=== PATIENT | female | born 1945 | race Caucasian/White ===

== ENCOUNTER 2018-01-09 06:14 | Day surgery (SDC) | payer MEDICARE, OTHER ==
[~2018-01-09] VITALS: Ht 157.5 cm; Wt 66.7 kg
[~2018-01-09 06:14] MED LIST: ESSENTIAL DAIL1 EACH PO; KEFLEX500 MG PO; VALACYCLOVIR500 MG PO; ZOFRAN ODT4 MG PO
[2018-01-09] MEDS ORDERED: MACROBID 100 M100 MG PO (06:30)
[2018-01-09] MEDS ORDERED: LISINOPRIL10 MG PO (06:31)
--- NOTE | 2018-01-09 08:16 | NUR ---
01/09/18 0816 Padmini Carrera 0810 ASSUMED CARE FROM JOSEFA Tellez RN. PATIENT SLEEPING, DIFFICULT TO ARROUSE, BUT AFTER REPEATED VERBAL AND TACTILE STIMULI, PATIENT OPENS EYES. ANSWERS QUESTIONS WITH SLURRED SPEECH. DENIES PAIN OR NAUSEA. ASK QUESTIONS APPROPRIATELY, THEN BACK TO SLEEP. RESP EVEN AND UNLABORED. NC AT 3 LITERS.
--- NOTE | 2018-01-09 09:58 | OR ---
[facility] [address], [place] [address] Signed DATE OF OPERATION: 01/09/2018 SURGEON: Concepcion Haq MD PREOPERATIVE DIAGNOSIS: Guaiac-positive stool. POSTOPERATIVE DIAGNOSES: 1. Moderate external hemorrhoids. 2. Minimal to moderate internal hemorrhoids. 3. Moderate sigmoid diverticulosis. PROCEDURE: Colonoscopy without biopsy. ESTIMATED BLOOD LOSS: None. INDICATIONS: Santa is a 72-year-old female who was recently found to have guaiac-positive stool. Today, she has not had a colonoscopy. She says there is no family history of colon cancer or polyps. She really does not have any lower GI complaints. However, she has been through a hysterectomy for uterine cancer and she is quite worried. I gave her a pamphlet in the office on colonoscopy and we looked at that together along with the risks including, but not limited to gas, bloating, crampy abdominal pain, bleeding, perforation requiring surgery, and missed diagnosis. We also discussed the need for IV conscious sedation. She expressed understanding and wished to proceed. PROCEDURE NOTE: Santa was taken into our endoscopy suite and placed in the left lateral decubitus position. She was given 9 mg of Versed and 150 mcg of fentanyl to cover the case. A digital rectal exam was performed and she does have circumferential external hemorrhoids. They are a bit scarred and firm. Her anal canal is just large enough to get my index finger through, although she has a very short anal canal. After this, the adult colonoscope was introduced and advanced under direct visualization of the camera. It took extra sedation and abdominal compression in order to advance the scope. Santa is slight of build and her sigmoid colon was a bit tortuous and narrow with moderate sigmoid diverticulosis. Once we got through that area, it took just a few more minutes then to get into the cecum itself. Her prep was quite good. We could easily see the ileocecal valve and the appendiceal orifice. The scope was then slowly withdrawn. We Electronically Signed By: CONCEPCION HAQ MD 01/09/18 0958 PATIENT NAME: SANAT PACHECO OPERATIVE REPORT DATE OF : 47 REPORT #: [id number] PHYSICIAN: CONCEPCION HAQ MD PCP: NIKKI SOUZA PA-C REPORT IS CONFIDENTIAL AND NOT TO BE RELEASED WITHOUT AUTHORIZATION [address] [address] Signed had taken several pictures throughout for photodocumentation. No other pathology found in the colon or rectum. Upon retroflexion of the scope, she has minimal to moderate internal hemorrhoid columns. One was a little irritated and I suspect that is the one that may have caused the guaiac-positive stool. After this, the gas was suctioned out and the colonoscope removed. Santa tolerated the procedure quite well. RECOMMENDATIONS: Santa can follow up in 10 years for repeat colonoscopy. Concepcion Haq MD ALB/LEDYL /[id number] cc: Nikki Souza PA-C Copies: NIKKI SOUZA PA-C ~ Electronically Signed By: CONCEPCION HAQ MD 01/09/18 0958 PATIENT NAME: SANTA PACHECO KIRON OPERATIVE REPORT DATE OF : 47 REPORT #: [id number] PHYSICIAN: CONCEPCION HAQ MD PCP: NIKKI SOUZA PA-C REPORT IS CONFIDENTIAL AND NOT TO BE RELEASED WITHOUT AUTHORIZATION
--- NOTE | 2018-01-09 14:48 | NUR ---
PT IN FOR ROUTINE SCOPE. FIRST SCOPE, SEEMED TO TOLERATE PREP-BUT STATED SHE CAN NEVER DRINK GATORADE AGAIN. PLEASANT VISIT, PT DECLINED PRAYER. EXTENDED A BLESSING. WILL FOLLOW NEEDED
== END 2018-01-09 09:00 | disposition home or self-care (01) ==
LOC: OPS 06:14 → DS 06:14 → OPS 06:45 → DS 06:45 → OPS 09:00
PROVIDERS: Colon & Rectal Surgery
PROC: 0DJD8ZZ Inspection of Lower Intestinal Tract, Via Natural or Artificial Opening Endoscopic (ICD-10-PCS; principal; 2018-01-09 06:45)
DX: R19.5 Other fecal abnormalities (principal); K64.8 Other hemorrhoids; K64.4 Residual hemorrhoidal skin tags; K57.30 Diverticulosis of large intestine without perforation or abscess without bleeding; I10 Essential (primary) hypertension; E78.5 Hyperlipidemia, unspecified; Z79.2 Long term (current) use of antibiotics; Z79.899 Other long term (current) drug therapy; Z88.1 Allergy status to other antibiotic agents
CPT/HCPCS: 99153; G0500; J2250; J3010; J7120

== ENCOUNTER 2019-04-30 13:54 | Emergency (ER) | payer MEDICARE, OTHER ==
[~2019-04-30] VITALS: Ht 160 cm; Wt 59.0 kg
[~2019-04-30 13:54] MED LIST changes: +LISINOPRIL10 MG PO; +MACROBID 100 M100 MG PO
== END 2019-04-30 15:46 | disposition home or self-care (01) ==
LOC: ED 13:54
PROC: 2W3CX1Z Immobilization of Right Lower Arm using Splint (ICD-10-PCS; principal; 2019-04-30)
DX: S52.501A Unspecified fracture of the lower end of right radius, initial encounter for closed fracture (principal); S80.02XA Contusion of left knee, initial encounter; Z85.42 Personal history of malignant neoplasm of other parts of uterus; Z88.2 Allergy status to sulfonamides; Z79.899 Other long term (current) drug therapy; X50.1XXA Overexertion from prolonged static or awkward postures, initial encounter
CPT/HCPCS: 29125; 73110; 73610; 99283-25

== ENCOUNTER 2019-09-23 06:33 | Emergency (ER) | payer MEDICARE, OTHER ==
[~2019-09-23] VITALS: Ht 160 cm; Wt 54.4 kg
--- NOTE | 2019-09-23 19:28 | EKG ---
[facility] [address] [facility] [place], [place] [address] Signed Normal sinus rhythm Left axis deviation Left bundle branch block Abnormal ECG No previous ECGs available Confirmed by NUVIA GALLO MD ([id number]) on 09/23/2019 7:28:11 PM Electronically Signed By: NUVIA GALLO MD 09/23/19 1928 PATIENT NAME: DANIELLE PACHECO AMBIKA Electrocardiogram DATE OF : 47 PHYSICIAN: NUVIA GALLO MD REPORT #: [id number] REPORT IS CONFIDENTIAL AND NOT TO BE RELEASED WITHOUT AUTHORIZATION
== END 2019-09-23 09:58 | disposition home or self-care (01) ==
LOC: ED 06:33
DX: R55 Syncope and collapse (principal); D61.818 Other pancytopenia; I10 Essential (primary) hypertension; Z88.2 Allergy status to sulfonamides; Z79.899 Other long term (current) drug therapy
CPT/HCPCS: 80053; 81001; 83605; 83735; 84484; 85025; 93005; 93010; 96360; 99284-25; J7030

== ENCOUNTER 2019-09-23 09:57 | Day surgery (SDC) | payer MEDICARE, OTHER ==
--- NOTE | 2019-09-23 10:08 | NUR ---
ARRIVED PER WC FROM E D TO ROOM 6 FOR BONE MARROW BX. HAS IV IN .
--- NOTE | 2019-09-23 10:20 | NUR ---
WAS ABLE TO DRAW BLOOD FROM IV SITE FOR BONE MARROW KIT.
--- NOTE | 2019-09-23 12:25 | NUR ---
DR ZELAYA HAS BEEN IN TO SEE PT. PT HAS BEEN UPDATED AND HAS BEEN UP TO BR X2 WHILE WAITING. DENIES ANY NEEDS.
--- NOTE | 2019-09-23 13:22 | NUR ---
09/23/19 1322 Mercedes Sethi 1319-PATIENT ARRIVED TO PACU ON 2L NC LAYING PRONE. REACTIVE TO VERBAL STIMULI DENIES PAIN OR NAUSEA. BANDAID CDI.
--- NOTE | 2019-09-25 14:04 | PATH ---
[facility] [address] [facility] [place], [place] [address] Signed SPECIMEN(S): A BONE MARROW - CORE SPECIMEN(S): B BONE MARROW - ASPIRATION SPECIMEN(S): C COMPREHENSIVE FLOW CYTOMETRY ONLY, BM EDTA ASP CLINICAL HISTORY: 74-year-old woman without PMHX, now with new onset symptomatic pancytopenia. D61.818 (other pancytopenia). DIAGNOSIS SUMMARY: A. Peripheral blood - Leukopenia with absolute neutropenia and lymphocytopenia. - Microcytic anemia. - Thrombocytopenia with small platelet clumps identified. B. Bone marrow, aspirate smears, clot section cell block, and core biopsy: - Hypocellular marrow (10-20%) with rare BA21-nekyynyu atypical cells identified. - Non-necrotizing granulomas detected. - Decreased M:E ratio. - Stainable iron present, mildly increased. - Please see Diagnostic Comment. DIAGNOSTIC COMMENT: The bone marrow core biopsy demonstrates several non-necrotizing granulomas with associated rare ZZ53-bfyuqrrv atypical cells that also demonstrate weak PAX5 expression. This finding is concerning for bone marrow involvement by classic Hodgkin lymphoma. Additional work up may be futile, as the focus of interest decreased in size in the deeper sections. If the patient has enlarged lymph nodes or other evidence of lymphoma, a formal tissue excision may be recommended for confirmation and further subclassification. Cytogenetic study is in progress and the result will be reported in an addendum. The case findings were discussed with Dr. Santillan at 12.30 p.m. on 09/25/2019. As part of [facility] Quality Improvement Program, this case was reviewed by another member of our pathology staff. GP:TTP:smn:C2NR PERIPHERAL BLOOD: HEMOGRAM ([facility]; 09/23/2019): WBC 2.1 K/uL, RBC 4.3 M/uL, HGB 11.5 g/dL, HCT 33.8%, MCV 78.7 fL, MCH 26.7 pg, MCHC 33.9 g/dL, RDW 16.5%, PLT PATIENT NAME: DANIELLE PACHECO PATHOLOGY DATE OF : 47 REPORT #: [id number] PHYSICIAN: ELENA MAYORGA PCP: RIGOBERTO UJAREZ PA-C REPORT IS CONFIDENTIAL AND NOT TO BE RELEASED WITHOUT AUTHORIZATION [facility] [address] [place], [place] [address] Signed 63 K/uL, MPV 8.9 fL. DIFFERENTIAL (100 cells): Neutrophils 68%, bands 14%, lymphocytes 10%, monocytes 8%. The blood smear is consistent with the CBC. Hemoglobin is mildly decreased with slightly low MCV; red blood cells are predominantly round, normochromic, slightly microcytic. Red blood cells demonstrate moderate anisocytosis with occasional polychromatophilic ovalocytes, echinocytes, and spherocytes. Schistocytes are not significantly increased. WBC count is markedly decreased with predominance of mature neutrophils and bands demonstrating intracytoplasmic vacuoles and normal cytoplasmic granularity. No blasts or otherwise immature cells detected. Lymphocytes are small with condensed chromatin pattern and scant to moderate amount of cytoplasm. Unremarkable monocytes are seen. Platelets are decreased in number, but normal in appearance. Some small platelet clumps are noted. BONE MARROW: BONE MARROW DIFFERENTIAL (400 cells): Blasts 1%, promyelocytes 2%, myelocytes 16%, metamyelocytes 16%, bands 8%, neutrophils 8%. Normoblasts 31%, lymphocytes 9%, plasma cells 1% monocytes 4%, eosinophils 3%, basophils 1%. ASPIRATE SMEARS: The aspirate smears are adequately cellular and demonstrate trilineage hematopoietic elements at different stages of maturation. Myelopoiesis is left shifted, but demonstrates full spectrum of maturation. Blasts are not significantly increased. M:E ratio is reversed. The erythroid precursors demonstrate megaloblastoid changes. Variably-sized megakaryocytes are noted. No significant eosinophilia or basophilia identified. BONE MARROW BIOPSY: The biopsy is suboptimal for evaluation due to a small sample size. Histologic sections demonstrate hypocellular bone marrow for the patient's age (overall estimated cellularity is approximately 10-20%). Several granulomas composed of multinucleated giant cells admixed with small lymphocytes, eosinophils, and rare larger cells with irregular nuclear outlines are noted. Erythroid colonies, mature granulocytes, interstitial eosinophils, and evenly distributed megakaryocytes are noted. CLOT SECTION: Clot section contains small bone marrow fragments with similar morphologic appearance. Granulomas are not detected. SPECIAL STAINS (performed on aspirate smear and clot section): PATIENT NAME: DANIELLE PACHECO PATHOLOGY DATE OF : 47 REPORT #: [id number] PHYSICIAN: ELENA PATHOLOGY PCP: RIGOBERTO JUAREZ PA-C REPORT IS CONFIDENTIAL AND NOT TO BE RELEASED WITHOUT AUTHORIZATION [facility] [address] [facility] [place], [place] [address] Signed - Iron stain: Increased stainable iron; no ring sideroblasts detected. SPECIAL STAINS (performed on bone marrow core biopsy): - Reticulin stain: Highlights reticulin fibrosis associated with granulomas. - GMS: Negative for fungal organisms. - AFB: Negative for acid fast bacilli. IMMUNOHISTOCHEMICAL STAINS (performed on bone marrow core biopsy): - CD30: Positive in some large cells within granulomas. - PAX5: Weak positivity in large cells within granulomas. - CD3: Positive in small T-cells. - CD20: Positive in rare cells. - CD34: Positive in endothelial cells and rare immature cells. - CD117: Positive in scattered mast cells. - CD71: Positive in erythroid precursors. - Factor VIII: Positive in megakaryocytes; highlights some small forms. - Myeloperoxidase: Positive in myeloid precursors. GP:anselmo FLOW CYTOMETRY: Bone marrow, flow cytometry: - No increase in blasts. - No monoclonal B-cell or aberrant T-cell populations detected. - Please see Comment. COMMENT: The flow cytometry study demonstrates no immunophenotypic evidence of a hematolymphoid malignancy. Correlation with clinical and morphologic findings is required for complete interpretation of the flow cytometry results and to evaluate for disorders not fully characterized by flow cytometric analysis including myelodysplastic syndromes, myeloproliferative neoplasms and others. GP:[facility] hospital FLOW CYTOMETRY ANALYSIS: FLOW DIFFERENTIAL (% Total CD45 vs. SSC gating): Myeloid 76%; Lymphoid 7%; Monocyte 1%; Dim CD45/Blast: 0.8%. Cell Count: 5.6 x 10*3/uL. POPULATION ANALYSIS: BLASTS: Analysis of the dim CD45 gate demonstrates 0.8% myeloblasts by CD34/CD117. LYMPHOID CELLS: The lymphocyte gate comprises 7% of total events and includes 84% T-cells with a CD4:CD8 ratio of 0.4:1 and normal kim T-cell antigen expression. 8% of lymphocytes are polyclonal PATIENT NAME: DANIELLE PACHECO AMBIKA PATHOLOGY DATE OF : 47 REPORT #: [id number] PHYSICIAN: ELENA PATHOLOGY PCP: RIGOBERTO JUAREZ PA-C REPORT IS CONFIDENTIAL AND NOT TO BE RELEASED WITHOUT AUTHORIZATION [facility] [address] [facility] [place], [place] [address] Signed B-cells with a kappa:lambda ratio of 2.6:1. The remainders are NK-cells. MYELOID CELLS: The myeloid population comprises 76% of the total events. No aberrant immunophenotypic expression is detected. MONOCYTES: The monocyte population comprises 1% of the total events. Monocytes are not increased. No aberrant immunophenotypic expression is detected. PLASMA CELLS: 0.1% plasma cells are detected in the screening gate neg-dimCD45/CD38. Plasma cells are CD45 dim and positive for CD19. ANTIBODIES USED: KAPPA, LAMBDA, CD20, CD10, CD19, CD23, CD38, FMC7, CD16, CD56, CD8, CD5, CD2, CD4, CD7, CD3, CD14, CD33, CD13, HLADR, CD34, CD117, CD15, CD45: TOTAL ANTIBODIES USED: 24. DKW FINAL DIAGNOSIS PERFORMED BY: Candelario Bell MD. MPH, Pathologist Sep 24 2019 4:16PM CYTOGENETICS: Pending, to be reported by addendum. GROSS DESCRIPTION: A. The specimen, received in formalin, labeled "Grafton, bone core," consists of a 0.7 cm, silva bone core. Submitted in (A1) following decalcification in Immunocal for 1.5 hours. B. The specimen, received in formalin, labeled "Alberto, clot," consists of a 1.8 x 1.5 x 0.2 cm aggregate of blood clot. Entirely submitted in (B1). tn:ARW:f ADDITIONAL NOTES: Immunohistochemical and/or in situ hybridization studies were performed on this case with the appropriate positive controls that react as expected. This test was developed and its performance characteristics determined by [facility]. It has not been cleared or approved by the U.S. Food and Drug Administration. The FDA has determined that such clearance or approval is not necessary. This test is used for clinical purposes. It should not be regarded as investigational or for research. [facility] is certified under the Clinical Laboratory Improvement Amendments of 1988 (CLIA) as qualified to perform high complexity clinical laboratory testing. In this case, certain antibodies were performed by both immunohistochemistry and flow cytometry analysis because flow cytometry analysis did not fully explain all the light microscopic findings. Immunohistochemistry aided in the analysis. Both methods are deemed medically PATIENT NAME: DANIELLE PACHECO PATHOLOGY DATE OF : 47 REPORT #: [id number] PHYSICIAN: ELENA MAYORGA PCP: RIGOBERTO JUAREZ PA-C REPORT IS CONFIDENTIAL AND NOT TO BE RELEASED WITHOUT AUTHORIZATION [address] [address] Signed necessary in this case. This test was developed and its performance characteristics determined by [facility]. It has not been cleared or approved by the US Food and Drug Administration. The FDA does not require this test to go through premarket FDA review. This test is used for clinical purposes. It should not be regarded as investigational or for research. This laboratory is certified under the Clinical Laboratory Improvement Amendments (CLIA) as qualified to perform high complexity clinical laboratory testing. PERFORMING LABORATORY: The professional interpretation was performed by [facility], [address] [place] [address] (Dietary Aide: Scott Khalil D.O.; CLIA#: [id number]). Professional interpretation was performed by [facility], [address] [place] [address] (Dietary Aide: Scott Khalil D.O.; CLIA#: [id number]). IMAGES: A: [id number]: [id number] Diagnostician: Candelario Bell MD. MPH Pathologist Electronically Signed 09/25/2019 Copies: ~ PATIENT NAME: DANIELLE PACHECO PATHOLOGY DATE OF : 47 REPORT #: [id number] PHYSICIAN: ELENA MAYORGA PCP: RIGOBERTO JUAREZ PA-C REPORT IS CONFIDENTIAL AND NOT TO BE RELEASED WITHOUT AUTHORIZATION
== END 2019-09-23 14:40 | disposition home or self-care (01) ==
LOC: OPS 09:57 → DS 13:00 → OPS 14:40
PROVIDERS: Specialist
PROC: 079T3ZX Drainage of Bone Marrow, Percutaneous Approach, Diagnostic (ICD-10-PCS; 2019-09-23)
PROC: 07DR3ZX Extraction of Iliac Bone Marrow, Percutaneous Approach, Diagnostic (ICD-10-PCS; principal; 2019-09-23 13:00)
DX: D70.9 Neutropenia, unspecified (principal); D69.6 Thrombocytopenia, unspecified; D50.9 Iron deficiency anemia, unspecified; R16.1 Splenomegaly, not elsewhere classified; B02.9 Zoster without complications; I10 Essential (primary) hypertension; Z79.899 Other long term (current) drug therapy; Z88.2 Allergy status to sulfonamides
CPT/HCPCS: 99152; 99153; J2250; J3010; J7121

== ENCOUNTER 2019-10-19 14:29 | Inpatient (IN) | payer MEDICARE, OTHER ==
[~2019-10-19] VITALS: Ht 160 cm; Wt 54.7 kg
--- NOTE | ~2019-10-19 | OR ---
[facility] [address], [place] [address] Draft DATE OF OPERATION: 10/23/2019 SURGEON: Concepcion Haq MD PREOPERATIVE DIAGNOSES: 1. Probable Hodgkin lymphoma. 2. Right inguinal lymphadenopathy. POSTOPERATIVE DIAGNOSES: 1. Probable Hodgkin lymphoma. 2. Right inguinal lymphadenopathy. PROCEDURES: 1. Placement of right internal jugular Port-A-Cath. 2. Physician-directed fluoroscopy. 3. Physician-directed ultrasound. 4. Right inguinal lymph node biopsy x3. ESTIMATED BLOOD LOSS: None. INDICATIONS: Santa is a 74-year-old female, who is in the process of being evaluated for Hodgkin lymphoma. She has been working with her medical oncologist. She was asked to see me for placement of her Port-A-Cath as well as a lymph node biopsy. In the office, I met with Santa and her . We could palpate at least two lymph nodes in the right groin just lateral to the femoral nerve, artery, and vein. We also know she has lymph nodes in both axilla, although, we could not palpate them in the office. I had reviewed with Santa and her the placement of a Port-A-Cath. They understand the nature of that catheter along with the risks of the procedure including, but not limited to bleeding, infection, scarring, change in contour of the skin, and pneumothorax requiring chest tube placement as well as catheter embolization requiring retrieval. We also reviewed the groin lymph node biopsy in detail. They understand the nature of that surgery along with its risks including, but not limited to bleeding, infection, scarring, change in contour of the skin, postoperative seroma, and/or hematoma as well as possible need for additional lymph node biopsies. They had expressed understanding and wished to proceed. PROCEDURE NOTE: I met with Santa and her in the preop area. We had planned to do her 2 days PATIENT NAME: SANTA PACHECO OPERATIVE REPORT DATE OF : 47 REPORT #: [id number] PHYSICIAN: CONCEPCION HAQ MD PCP: RENEE KAMARA MD REPORT IS CONFIDENTIAL AND NOT TO BE RELEASED WITHOUT AUTHORIZATION [facility] [address] [place], [place] [address] Draft ago, but she was admitted to the hospital with fevers. The entire workup was negative and this was attributed to her lymphoma. In fact, she was in the shower and had a fever yesterday, took some Tylenol, and subtle breakdown. After reviewing her question, she was taken in the operating room and placed in the supine position under monitored anesthesia care. She was given preoperative antibiotics along with subcutaneous heparin. SCDs were utilized. She was then prepped and draped in the usual sterile fashion in the neck, chest, and right groin. We used the ultrasound to localize the right internal jugular vein and carotid artery. Local anesthetic was injected underneath the skin and the needle was passed under direct visualization of the ultrasound into the internal jugular vein. We withdrew dark venous nonpulsatile blood. The wire was inserted and passed without any resistance whatsoever. The position of the wire was checked with our fluoroscopy unit. We then injected local anesthetic over the right chest wall, clavicle, and right neck. An oblique incision was made over the right chest wall and a subcutaneous pocket was developed bluntly with the help of a Pean clamp. We then passed our dilator over the wire down the right internal jugular vein. The position of the dilator was checked with the fluoroscopy unit. After this, the Port-A-Cath was inserted up to 14 cm at the level of the neck. The position of the catheter was checked with the help of fluoroscopy unit. We used our tunneler then to bring the catheter underneath the skin of the neck over the clavicle along the chest wall. The catheter was cut the length and the hub was inserted onto the catheter. The collar was brought over the neck of the hub to hold the catheter in place. The catheter was able to draw and flush quite readily with injectable saline. We checked the position of the hub in the full length of the catheter with the help of the fluoroscopy unit. We then instilled concentrated heparin into our catheter. The catheter was held in place with two sutures on the medial side, one on the lateral side, and then a fourth suture around the neck of the hub using 2-0 Prolene. The wound was irrigated and suctioned out until clear. We closed the subcutaneous tissue and dermis with interrupted 3-0 Monocryl sutures. The skin edges were reapproximated with a running 5-0 fast absorbing plain gut suture. The dermis on the neck was closed with an interrupted 5-0 Monocryl suture and the skin was reapproximated with a running 5-0 fast absorbing plain gut suture. This was then covered with a sterile blue towel. We then moved to the right groin. We opened the drape with our scissors. We could palpate the lymph nodes as described above. A 3 cm oblique incision was made and carried down through the tissues after injecting local anesthetic. We found three lymph nodes clustered together and they were all removed sharply with the Metzenbaum scissors and with the help of the cautery. Each lymph node was cleaned sharply with the Metzenbaum scissors and sent off to the Pathology Department in fresh in saline. We injected some additional local in the base of the wound. We tried not to go too deep to catch the femoral nerve. The wound was irrigated and suctioned out until clear. Hemostasis was excellent. We closed the subcutaneous tissue and dermis with the help of the 3-0 Monocryl suture. Skin edges were reapproximated with a running 5-0 fast PATIENT NAME: SANTA PACHECO OPERATIVE REPORT DATE OF : 47 REPORT #: [id number] PHYSICIAN: CONCEPCION HAQ MD PCP: RENEE KAMARA MD REPORT IS CONFIDENTIAL AND NOT TO BE RELEASED WITHOUT AUTHORIZATION [facility] [address] [place], [place] [address] Draft absorbing plain gut suture. After this, dry gauze and tape were applied to all incisions. Santa was awakened from her anesthesia, transferred to her hospital bed, and taken into recovery room in stable condition. Portable chest x-ray is currently pending. Concepcion Haq MD ALB/MODL /[id number] cc: MD Jeferson Monsalve MD Chloe K Norris, PA-C Copies: CONCEPCION HAQ MD, ROBERT C MD NORRIS, CHLOE K PA-C ~ PATIENT NAME: SANTA PACHECO OPERATIVE REPORT DATE OF : 47 REPORT #: [id number] PHYSICIAN: CONCEPCION HAQ MD PCP: RENEE KAMARA MD REPORT IS CONFIDENTIAL AND NOT TO BE RELEASED WITHOUT AUTHORIZATION
[~2019-10-19 14:29] MED LIST changes: +COMPLEX B-1001 EACH PO; +VITAMIN C1000 MG PO
--- OUTSIDE RECORDS SUMMARY | 2019-10-19 14:32 | XMS ---
PreManage Notification: DANIELLE PACHECO Security Bee Farmer Events No recent Security Events currently on file CRITERIA MET - [facility] - 2 Visits in 30 Days CARE PROVIDERS Toi Medina PA-C Physician Software Test Analyst Current PHONE: Unknown Nikki Souza PA-C Treatment Current PHONE: Unknown Ambrocio Breen MD Current PHONE: Unknown Krys has no Care Guidelines for this patient. Tamara VISIT COUNT (12 MO.) 3 [facility] TOTAL 3 NOTE: Visits indicate total known visits. ED/UCC VISIT TRACKING (12 MO.) 10/19/2019 14:30 [facility] [place] TYPE: Emergency COMPLAINT: - WEAKNESS 09/23/2019 06:34 [facility] [place] TYPE: Emergency COMPLAINT: - SYNCOPE DIAGNOSES: - Other regional intermodal truck driver (current) drug therapy - Essential (primary) hypertension - Syncope and collapse - Allergy status to sulfonamides status - Other pancytopenia 04/30/2019 13:[address] [facility] [place] TYPE: Emergency COMPLAINT: - RIGHT WRIST LEFT ANKLE INJURY DIAGNOSES: - Other [facility] (current) drug therapy - Pain in right ankle and joints of right foot - Personal history of malignant neoplasm of oth prt uterus - Overexertion from prolonged static or awkward postures, init - Unsp fracture of the lower end of right radius, init - Allergy status to sulfonamides status - Contusion of left knee, initial encounter INPATIENT VISIT TRACKING (12 MO.) No inpatient visits to display in this time frame [email or web address]
--- NOTE | 2019-10-19 20:00 | NUR ---
PT ADMITTED FROM ED, TO ROOM 117, HAS "ACTIVE" SHINGLES ON HER BUTTOCKS, STATES SHE HAS HAD THEM FOR "SEVERAL" YEARS, PAINFUL TO TOUCH, SOME SCABBED OVER, WITH SUPERFICIAL OPEN. DEPENDENT ON STAFF TO MOVE HER OVER FROM STRETCHER TO BED, BUT ONCE IN BED, PT WITH MIMINAL ASSIST UP TO THE BATHROOM TO VOID. BACK TO BED, SCD'S IN PLACE, RA; BOLUS LR INFUSING AT THIS TIME. PT AWARE SHE NEEDS TO USE CALL LIGHT TO REQUEST HELP TO THE BATHROOM. JOSE A PLANS TO COME IN AND STAY WITH HER TONIGHT. WARM BLANKETS PROVIDED. CALL LIGHT WITHIN REACH.
--- NOTE | 2019-10-19 20:06 | EKG ---
[facility] [address] [facility] [place] [address] Signed Sinus tachycardia Left axis deviation Low voltage QRS Left bundle branch block Abnormal ECG No significant change was found When compared with ECG of 10/14/2019 Confirmed by NUVIA GALLO MD ([id number]) on 10/19/2019 8:06:27 PM Electronically Signed By: NUVIA GALLO MD 10/19/19 2006 PATIENT NAME: TARADANIELLE AMBIKA Electrocardiogram DATE OF : 47 PHYSICIAN: NUVIA GALLO MD REPORT #: [id number] REPORT IS CONFIDENTIAL AND NOT TO BE RELEASED WITHOUT AUTHORIZATION
--- NOTE | 2019-10-19 20:29 | NUR ---
ASSISTED WITH PATIENT CARE. PLACED ALLYVN ON PATIENTS LEFT BUTTOCK. PATIENT OREINTED TO FLOOR, ROOM, AND CALL LIGHT. PATIENTS VITALS TAKEN. PATIENT DENIES ANY COMMENTS, QUESTIONS, OR CONCERNS. NO NEEDS NOTED. CALL LIGHT IN REACH. AMEE PRADO REMAINS IN ROOM.
--- NOTE | 2019-10-19 21:00 | NUR ---
ASSESSMENT COMPLETE. SCHEDULED MEDS GIVEN WITHOUT ISSUE. SANDWICH BOX ORDERED. IV BOLUS COMPLETE. SCD'S IN PLACE. PT UP TO BR WITH SBA. BACK TO BED, LEN WELL. IVF INFUSING. PT DENIES PAIN. NO QUESTIONS OR CONCERNS AT THIS TIME. ORIENTED TO NURSE CALL LIGHT, CALL LIGHT WITHIN REACH.
--- NOTE | 2019-10-19 21:57 | NUR ---
PT UP TO BR WITH SBA, GAIT STEADY. BACK TO BED, LEN WELL. PT STATES SHE ATE 50% OF TURKEY SANDWICH. AT BEDSIDE. IVF INFUSING. SCD'S IN PLACE. CALL LIGHT WITHIN REACH.
--- NOTE | 2019-10-19 23:05 | NUR ---
PT TO NURSES STATION STATING PT IS SHIVERING UNCONTROLLABLY. DOWN TO CHECK ON PT, TEMP 99.1. PT STATES THIS HAS BEEN HAPPENING AT HOME WELL. WARM BLANKET GIVEN.
--- NOTE | 2019-10-20 00:06 | NUR ---
PT RESTING IN BED WITH EYES CLOSED, NAD. IN RECLINER AT BEDSIDE. CALL LIGHT IN REACH.
--- NOTE | 2019-10-20 00:30 | NUR ---
CALL LIGHT ANSWERED. PT UP TO BR WITH SBA. INCONTINENT OF URINE ON THE WAY. PT CLEANED, FRESH GOWN AND SCD'S GIVEN. PT BACK TO BED. TEMP NOTED TO BE 102.7. PRN GIVEN. PT STATES SHE IS HOT, FRESH ICE WATER GIVEN.
--- NOTE | 2019-10-20 02:50 | NUR ---
IV ABX HUNG. VS TAKEN AND RECORDED. PT UP TO BR WITH SBA, GAIT STEADY. BACK TO BED, LEN WELL. PT C/O BEING EXTREMELY HOT, ALL BLANKETS REMOVED. FAN AND COOL WASH CLOTH GIVEN.
--- NOTE | 2019-10-20 03:20 | NUR ---
PT C/O NAUSEA, PRN GIVEN. PT STATES SHE IS STARTING TO "COOL OFF". NO FURTHER REQUESTS AT THIS TIME.
--- NOTE | 2019-10-20 04:41 | NUR ---
PT RESTING IN BED WITH EYES CLOSED, NO APPARENT DISTRESS. IV ABX INFUSING. REMAINS IN ROOM. CALL LIGHT IN REACH.
--- NOTE | 2019-10-20 05:22 | NUR ---
PT ALERT AND ORIENTED, USES CALL LIGHT APPROPRIATELY. PT DID NOT REST WELL, WAS EITHER SHIVERING OR TOO HOT. IVF. IV ABX. PRN TYLENOL FOR ELEVATED TEMP. PRN ZOFRAN FOR NAUSEA. SBA. SCD'S. REG DIET, LEN FAIR. ALLEVYN X 2 TO COVER SHINGLES ON RIGHT BUTTOCK. IN THE ROOM.
--- NOTE | 2019-10-20 09:46 | NUR ---
103.2 TEMP ORALLY. REMOVED ALL BLANKETS. PATIENT NEEDED TO GET UP TO TOILET. USED BSC. VERY WEAK. VERY HELPFUL AND SUPPORTIVE AT BEDSIDE. LEGS VERY WEAK. SOCKS REMOVED AND ONLY REPLACED SHEET ON HER WHEN BACK TO BED. COLD CLOTH ON FOREHEAD AND NECK. STAT BLOOD CULTURES ORDERED FOR TEMP >100.7 PER WRITTEN ORDERS.
--- NOTE | 2019-10-20 10:35 | NUR ---
PATIENT IN BED RESTING, IN ROOM. FRESH WATER GIVEN. CALL LIGHT IN REACH. NO FURTHER NEEDS AT THIS TIME.
[2019-10-20] MEDS ORDERED: ACYCLOVIR800 MG PO (12:41)
[2019-10-20] MEDS ORDERED: ATIVAN1 MG PO (12:42)
--- NOTE | 2019-10-20 12:43 | NUR ---
MED REC COMPLETE
--- NOTE | 2019-10-20 14:50 | NUR ---
PATIENT IMPROVED FROM THIS MORNING. AFEBRILE. ABLE TO AMBULATE TO BATHROOM WITH MINIMAL ASSIST. AT BEDSIDE. STARTING BLOOD TRANSFUSION SOON.
--- NOTE | 2019-10-20 15:05 | NUR ---
BLOOD PRODUCTS STARTED AT 1455, NO ADVERSE REACTION NOTED SO FAR. DOUBLE CHECKED WITH EVE CAMPBELL.VS STABLE. BP LOW AT 95 SYS. PT STATES SHE IS DROWSY, APPEARS PALE. ADVISED OF ADVERSE REACTIONS AND TO CALL STAFF FOR ANY S\S. ADMINSTERED ACYCLOVIR. PT STATED SHE HAS THE SCRIPT AT HOME AND JUST DIDN'T WANT TO TAKE IT.
--- NOTE | 2019-10-20 17:29 | NUR ---
TEMP 103.2 THIS MORNING. BLOOD CULTURES DRAWN. DECREASED TO 101.8 WITHOUT INTERVENTION, BUT DID ADMINISTER TYLENOL. AFEBRILE BY [phone]. STARTED 1 OF 2 BLOOD TRANSFUSIONS AT 1455. 2ND INFUSION GOING. STARTED 2ND IV, BUT INFILTRATED. WILL START CEFEPIME EXTENDED INFUSION AFTER 2ND BAG OF PRBCs INFUSED. SBA WITH FWW TO BATHROOM. ATTENDS IN PLACE. AT BEDSIDE-- VERY HELPFUL AND SUPPORTIVE. AFEBRILE ALL AFTERNOON. DOES GET CHILLS FROM TIME TO TIME-- NOT RELATED TO BLOOD ADMINISTRATION.
--- NOTE | 2019-10-20 19:20 | NUR ---
REPORT RECEIVED FROM DAY SHIFT RN. PT LYING IN BED, ALERT AND ORIENTED. IVF AND IV ABX INFUSING. PT DENIES PAIN OR NAUSEA. SCD'S IN PLACE. PT DENIES NEEDS AT THIS TIME. AT BEDSIDE. CALL LIGHT IN REACH.
--- NOTE | 2019-10-20 21:21 | NUR ---
PT UP TO BR WITH SBA AND FWW, GAIT STEADY. BACK TO BED, LEN WELL. PT C/O NAUSEA. CALLED, NEW ORDERS RECEIVED.
--- NOTE | 2019-10-20 21:41 | NUR ---
V/S AND I&O TAKEN AND CHARTED BY PRIMARY RN LATANYA.
--- NOTE | 2019-10-20 21:50 | NUR ---
EVENING ASSESSMENT COMPLETE. PT REFUSING ANTIVIRAL DUE TO NAUSEA. PRN GIVEN FOR NAUSEA. PT AFEBRILE. DENIES PAIN. SCD'S IN PLACE. NO FURTHER NEEDS. CALL LIGHT IN REACH.
--- NOTE | 2019-10-21 00:29 | NUR ---
PT STATES SHE IS RESTING COMFORTABLY, DENIES PAIN OR NAUSEA. TEMP 97.9 ORAL. WARM BLANKET GIVEN PER REQUEST. IV ABX INFUSING.
--- NOTE | 2019-10-21 02:10 | NUR ---
IV ABX INFUSING. PT DIAPHORETIC. FRESH LINEN AND GOWN PROVIDED. UP TO BR WITH SBA AND FWW TO VOID 200 ML EMILY COLORED URINE. BACK TO BED, LEN WELL. PT STATES SHE IS FEELING STRONGER THIS AM. DENIES PAIN OR NAUSEA. PT REMAINS AFEBRILE. FRESH WATER GIVEN. CALL LIGHT IN REACH.
--- NOTE | 2019-10-21 05:25 | NUR ---
CALL LIGHT ANSWERED. NEW BAG IVF HUNG. PT UP TO BR WITH SBA AND FWW. STRENGTH MUCH IMPROVED FROM ADMISSION. BACK TO BED, LEN WELL. TEMP 99.6. PT DENIES PAIN OR NAUSEA. IN ROOM. CALL LIGHT IN REACH.
--- NOTE | 2019-10-21 06:26 | NUR ---
PT SLEPT WELL. ALERT AND ORIENTED, USES CALL LIGHT. SBA WITH FWW. VOIDING QS. IVF. IV ABX. ONE TEMP OF 99.6. DENIES PAIN. PRN GIVEN FOR NAUSEA. PT REFUSED ANTIVIRAL SHE THOUGHT THAT MIGHT BE MAKING HER NAUSEATED. IN ROOM.
--- NOTE | 2019-10-21 10:07 | NUR ---
MARGE WILSON ASSISTING PATIENT WITH SHOWER NOW. PATIENT HAS LOW GRADE FEVER, BUT DOING MUCH BETTER THAN YESTERDAY. AT BEDSIDE. OTHER VSS.
--- NOTE | 2019-10-21 11:18 | NUR ---
PATIENT LYING DOWN IN BED AGAIN, BUT IN GREAT SPIRITS. AT BEDSIDE. HE ASSISTED HER WITH DRYING AND DRESSING AFTER SHOWER. CEFEPIME INFUSING. ZOFRAN GIVEN FOR SOME NAUSEA. DRESSING CHANGED ON IV D/T DRIED BLOOD UNDERNEATH.
--- NOTE | 2019-10-21 13:03 | NUR ---
Attempted to see pt x 2. She is with someone or was in the bathroom. Will see tomorrow.
--- NOTE | 2019-10-21 13:20 | NUR ---
PT ALERT, ORIENTED AND FEELING SO MUCH BETTER. PT MENTIONED THAT SHE HAS BEEN DIAGNOSED WITH CANCER AND HAS HAD TO POSTPONE PORTACATH PLACEMENT. HAD GOOD VISIT, PT MENTIONED THAT SHE IS VERY PLEASED WITH HER CARE AT [facility]. GAVE PT A BLESSING, WILL FOLLOW NEEDED
--- NOTE | 2019-10-21 17:54 | NUR ---
AFEBRILE THROUGHOUT DAY. ENERGY MUCH IMPROVED FROM YESTERDAY. SBA TO BATHROOM. SCDs. ZITHROMAX, CEFEPIME, VANCO IV. SALINE LOCKED OTHERWISE. PEPCID STARTED. REFUSED AFTERNOON ACYCLOVIR D/T UPSET STOMACH. SHOWERED THIS MORNING. LIKELY HOME TOMORROW AND WILL HAVE PO ABX.
--- NOTE | 2019-10-21 19:10 | NUR ---
SHIFT REPORT RECIEVED FROM JENNIE PRADO. PT SITTING UP IN BED, SPOUSE IN ROOM. PT DENIES PAIN. IV WNL. NO NEEDS AT THIS TIME. CALL LIGHT IN REACH.
--- NOTE | 2019-10-21 20:49 | NUR ---
aSSESSMENT, VS EBONY&O COMPLETED. SCHEDULED MED PROVIDED. PRN NAUSEA MED PROVIDED FOR NAUSEA. PT TAKING A BREAK FROM SCDs. RIGHT BUTTOCKS COVERED WITH ALLEVYN. NO OTHER NEEDS AT THIS TIME CALL LIGHT IN REACH, SPOUSE IN ROOM.
--- NOTE | 2019-10-21 23:02 | NUR ---
PT RESTING IN BED, EYES CLOSED. RR 14, EVEN, UNLABORED. CALL LIGHT IN REACH.
--- NOTE | 2019-10-22 00:20 | NUR ---
PT RESTING IN BED, EYES CLOSED. SCHEDULED IV MED PROVIDED. CALL LIGHT IN REACH.
--- NOTE | 2019-10-22 02:10 | NUR ---
PT RESTING IN BED, EYES CLOSED. SCHEDULED IV MED PROVIDED. IV WNL. CALL LIGHT IN REACH. SPOUSE SLEEPING IN ROOM.
--- NOTE | 2019-10-22 04:04 | NUR ---
PT RESTING IN BED, EYES CLOSED. RR 16, EVEN, UNLABORED. CALL LIGHT IN REACH.
--- NOTE | 2019-10-22 05:22 | NUR ---
PT SLEPT WELL THIS SHIFT. PT TOLERATED IV AND MEDS WELL. PT TOLERATED SCDs WELL. PT DECLINED SNACKS OR ENSURE. PT AFEBRILE, VSS. IV CDI, WNL, FLUSHED WELL. PT DENIES NEED FOR PAIN AND NAUSEA MEDICATIONS.
--- NOTE | 2019-10-22 06:02 | NUR ---
ASSESSMENT, VS AND I&O COMPLETED. PT DENIES PAIN AND NAUSEA. NO NEEDS AT THIS TIME. CALL LIGHT IN REACH.
--- NOTE | 2019-10-22 07:46 | NUR ---
PATIENT ALREADY ORDERED HER BREAKFAST. SHE SAID SHE WOULD LIKE TO TAKE A SHOWER IF SHE DOESN'T GO HOME TODAY. BUT I AM GOING TO GIVE HER THE TOWELS AND OTHER STUFF FOR HER SHOWER IN CASE SHE CHANGES HER MIND.
--- NOTE | 2019-10-22 08:22 | NUR ---
PT REMAINS AFEBRILE, UP ABOUT IN ROOM, IN ROOM, BOTH IN GOOD SPIRITS, BREAKFAST JUST ARRIVED, STATED SHE IS GOING TO TRY AND EAT THIS AM. DENIES ANY NEEDS AT THSI TIME.
--- NOTE | 2019-10-22 10:38 | NUR ---
PT FEELING EMOTIONAL, CONCERNED ABOUT PATIENT, TEMP RECHECKED 102.8 ORAL, SPOKE TO DR GALLO REGARDING TEMP, DECLINED DOING ANOTHER BLOOD CULTURE AT THIS TIME, CONT. WITH CURRENT ORDERS AND OK TO GIVE TYLENOL.
--- NOTE | 2019-10-22 11:31 | NUR ---
PT HAD JUST AWOKE FROM A BRIEF [place]. HER JOSE A WAS IN RM AT BS. PT STATED THAT SHE IS FEELING BETTER AND HOPES TO GO HOME TODAY. THANKED ME FOR CHECKING-EXTENDED A BLESSING. WILL FOLLOW NEEDED
--- NOTE | 2019-10-22 11:42 | NUR ---
DR GALLO IN TO SEE PT, AGREED FOR DC HOME TODAY, DR HAQ'S OFFICE CALLED AND APPOINTMENT RESCHEDULED FOR PORT PLACEMENT 10/23.
--- NOTE | 2019-10-22 15:00 | NUR ---
REVIEWED DISCHARGE INSTRUCTIONS, FOLLOWUP APPOINTMENT AND SX TO REPORT WITH PT AND , VERBALIZES UNDERSTANDING OF MEDICATIONS AND FOLLOWUP APPOINTMENT, UNDERSTANDS NPO AFTER MIDNIGHT TONIGHT FOR PORT PLACEMENT TOMORROW 0700. SPOKE WITH PHARMACY, NO QUESTIONS, DC TO HOME AT THIS TIME.IV DC'D FROM [facility] INTACT.
[2019-10-23] MEDS ORDERED: NORCO 5-325 TA1 EACH PO (11:01)
== END 2019-10-22 14:00 | disposition home or self-care (01) | DRG 841 ==
LOC: ED 14:29 → MS 14:31
PROVIDERS: ADMIT Internal Medicine
DX: C81.98 Hodgkin lymphoma, unspecified, lymph nodes of multiple sites (principal); D61.818 Other pancytopenia; E87.1 Hypo-osmolality and hyponatremia; R50.81 Fever presenting with conditions classified elsewhere; I10 Essential (primary) hypertension; E83.52 Hypercalcemia; E86.0 Dehydration; B02.9 Zoster without complications; Z85.42 Personal history of malignant neoplasm of other parts of uterus; Z88.2 Allergy status to sulfonamides; Z79.899 Other long term (current) drug therapy
CPT/HCPCS: 36415; 71045; 71046; 80053; 81001; 83605; 85025; 86850; 86900; 86901; 86920; 87502; 93005; 93010; 94760; 96374; 99285-25; J0692; J0780; J1200; J2405; J3370; J7030; J7060; J7121

== ENCOUNTER 2019-10-23 06:40 | Day surgery (SDC) | payer MEDICARE, OTHER ==
[~2019-10-23] VITALS: Ht 160 cm; Wt 53.5 kg
[~2019-10-23 06:40] MED LIST changes: +ACYCLOVIR800 MG PO; +ATIVAN1 MG PO
--- NOTE | 2019-10-23 08:03 | NUR ---
PT JUST DC'D FROM [facility] THURS WITH PNEUMONIA. JOSE A AT BS, TODAY SEEMS TO BE TAKING A TOLL ON HIM. HAD PRAYER WITH BOTH, LAB IN. WILL RETURN TO CHECK
--- NOTE | 2019-10-23 09:54 | NUR ---
10/23/19 0954 [place] 0932 PATIENT TO PACU, NO RESPONSIVE TO STIMULI. PATIENT BREATHING EVEN GOOD CHEST RISE, FOGGING IN MASK. 6L MASK 100%. DRESSING TO NECK, CHEST AND RIGHT FEMORAL. 0938 PATIENT AWAKE AND TALKING, RATES NO PAIN. BREATHING EASY. 0944 CHEST XRAY DONE, DR. HAQ TO BEDSIDE. PATIENT SITTING UP. BREATHING EASY. ICE APPLIED TO SURGICAL SITES. 0950 PATIENT TITRATED TO ROOM AIR, AWAKE ON AND OFF. OXYGEN SATURATION 96% RA. ENCOURAGING TO COUGH AND DEEP BREATHE. REPORTS NO PAIN OR NAUSEA.
--- NOTE | 2019-10-23 10:24 | NUR ---
PT ARRIVES BACK TO DS RM 4 FROM PACU AWAKE AND ALERT. RESP EVEN AND UNLABORED, SATS GREATER THAN 90% ON RA. PT DENIES ANY PAIN OR NAUSEA. SCD'S IN PLACE AND PUMPING, PLUGGED IN. PT DENIES BEING COLD. SIG OTHER AT BEDSIDE ON ARRIVAL, PROVIDED HARD COPY PAIN PRESCRIPTION TO TAKE TO PHARMACY TO FILL. PT PROVIDED SIPS OF ICED WATER, TOLERATES WELL. CRACKERS ON BEDSIDE TABLE. CALL LIGHT WITHIN REACH. MESH PANTIES WITH PAD IN PLACE PER PT REQUEST.
[2019-10-23] MEDS ORDERED: NORCO 5-325 TA1 EACH PO ×2 (11:01)
--- NOTE | 2019-10-23 11:15 | NUR ---
LE115: PT RESTING IN BED WITH EYES CLOSED, SNORING ON ARRIVAL TO ROOM. PT WAKES WITH RN IN ROOM. PT DENIES ANY PAIN OR NAUSEA AT THIS TIME. PT HAS URGE TO VOID, 2 RNS ASSIST PT TO WC AND TO BATHROOM. PT BLE WEAK, ABLE TO PIVOT WITH HELP. PT VOIDS QS WHILE RN REMAINS IN BATHROOM. PT BACK TO RM 4 WITH 2 RN ASSIST TO BED. SCD'S IN PLACE, PUMPING. PT PROVIDED WARM BROTH PER REQUEST. SPOUSE HELPING PT AT BEDSIDE. CALL LIGHT WITHIN REACH.
--- NOTE | 2019-10-23 12:50 | NUR ---
1140 REQUESTS TO GO HOME. AND NURSE ASSIST WITH DRESSING. HAS DIFFICULTY STANDING, R LEG GIVES OUT AT TIMES. VERY ATTENTIVE AND LIFTING PT WHEN NEEDED.
--- NOTE | 2019-10-26 10:43 | OR ---
[facility] [address] [place], [place] [address] Signed DATE OF OPERATION: 10/23/2019 SURGEON: Concepcion Haq MD PREOPERATIVE DIAGNOSES: 1. Probable Hodgkin lymphoma. 2. Right inguinal lymphadenopathy. POSTOPERATIVE DIAGNOSES: 1. Probable Hodgkin lymphoma. 2. Right inguinal lymphadenopathy. PROCEDURES: 1. Placement of right internal jugular Port-A-Cath. 2. Physician-directed fluoroscopy. 3. Physician-directed ultrasound. 4. Right inguinal lymph node biopsy x3. ESTIMATED BLOOD LOSS: None. INDICATIONS: Santa is a 74-year-old female, who is in the process of being evaluated for Hodgkin lymphoma. She has been working with her medical oncologist. She was asked to see me for placement of her Port-A-Cath as well as a lymph node biopsy. In the office, I met with Santa and her . We could palpate at least two lymph nodes in the right groin just lateral to the femoral nerve, artery, and vein. We also know she has lymph nodes in both axilla, although, we could not palpate them in the office. I had reviewed with Santa and her the placement of a Port-A-Cath. They understand the nature of that catheter along with the risks of the procedure including, but not limited to bleeding, infection, scarring, change in contour of the skin, and pneumothorax requiring chest tube placement as well as catheter embolization requiring retrieval. We also reviewed the groin lymph node biopsy in detail. They understand the nature of that surgery along with its risks including, but not limited to bleeding, infection, scarring, change in contour of the skin, postoperative seroma, and/or hematoma as well as possible need for additional lymph node biopsies. They had expressed understanding and wished to proceed. PROCEDURE NOTE: I met with Santa and her in the preop area. We had planned to do her 2 days Electronically Signed By: CONCEPCION HAQ MD 10/24/19 0647 Electronically Signed By: CONCEPCION HAQ MD 10/27/19 0624 PATIENT NAME: SANTA PACHECO OPERATIVE REPORT DATE OF : 47 REPORT #: [id number] PHYSICIAN: CONCEPCION HAQ MD PCP: RENEE KAMARA MD REPORT IS CONFIDENTIAL AND NOT TO BE RELEASED WITHOUT AUTHORIZATION [facility] [address] [place] [id number] Signed ago, but she was admitted to the hospital with fevers. The entire workup was negative and this was attributed to her lymphoma. In fact, she was in the shower and had a fever yesterday, took some Tylenol, and subtle breakdown. After reviewing her question, she was taken in the operating room and placed in the supine position under monitored anesthesia care. She was given preoperative antibiotics along with subcutaneous heparin. SCDs were utilized. She was then prepped and draped in the usual sterile fashion in the neck, chest, and right groin. We used the ultrasound to localize the right internal jugular vein and carotid artery. Local anesthetic was injected underneath the skin and the needle was passed under direct visualization of the ultrasound into the internal jugular vein. We withdrew dark venous nonpulsatile blood. The wire was inserted and passed without any resistance whatsoever. The position of the wire was checked with our fluoroscopy unit. We then injected local anesthetic over the right chest wall, clavicle, and right neck. An oblique incision was made over the right chest wall and a subcutaneous pocket was developed bluntly with the help of a Pean clamp. We then passed our dilator over the wire down the right internal jugular vein. The position of the dilator was checked with the fluoroscopy unit. After this, the Port-A-Cath was inserted up to 14 cm at the level of the neck. The position of the catheter was checked with the help of fluoroscopy unit. We used our tunneler then to bring the catheter underneath the skin of the neck over the clavicle along the chest wall. The catheter was cut the length and the hub was inserted onto the catheter. The collar was brought over the neck of the hub to hold the catheter in place. The catheter was able to draw and flush quite readily with injectable saline. We checked the position of the hub in the full length of the catheter with the help of the fluoroscopy unit. We then instilled concentrated heparin into our catheter. The catheter was held in place with two sutures on the medial side, one on the lateral side, and then a fourth suture around the neck of the hub using 2-0 Prolene. The wound was irrigated and suctioned out until clear. We closed the subcutaneous tissue and dermis with interrupted 3-0 Monocryl sutures. The skin edges were reapproximated with a running 5-0 fast absorbing plain gut suture. The dermis on the neck was closed with an interrupted 5-0 Monocryl suture and the skin was reapproximated with a running 5-0 fast absorbing plain gut suture. This was then covered with a sterile blue towel. We then moved to the right groin. We opened the drape with our scissors. We could palpate the lymph nodes as described above. A 3 cm oblique incision was made and carried down through the tissues after injecting local anesthetic. We found three lymph nodes clustered together and they were all removed sharply with the Metzenbaum scissors and with the help of the cautery. Each lymph node was cleaned sharply with the Metzenbaum scissors and sent off to the Pathology Department in fresh in saline. We injected some additional local in the base of the wound. We tried not to go too deep to catch the femoral nerve. The wound was irrigated and suctioned out until clear. Hemostasis was excellent. We closed the subcutaneous tissue and dermis with the help of the 3-0 Monocryl suture. Skin edges were reapproximated with a running 5-0 fast Electronically Signed By: CONCEPCION HAQ MD 10/24/19 0647 Electronically Signed By: CONCEPCION HQA MD 10/27/19 0624 PATIENT NAME: SANTA PACHECO OPERATIVE REPORT DATE OF : 47 REPORT #: [id number] PHYSICIAN: CONCEPCION HAQ MD PCP: RENEE KAMARA MD REPORT IS CONFIDENTIAL AND NOT TO BE RELEASED WITHOUT AUTHORIZATION [facility] [address] [place] [address] Signed absorbing plain gut suture. After this, dry gauze and tape were applied to all incisions. Santa was awakened from her anesthesia, transferred to her hospital bed, and taken into recovery room in stable condition. Portable chest x-ray is currently pending. Concepcion Haq MD ALB/MODL /[id number] cc: MD Jamison Monsalve MD Chloe K Norris, PA-C Copies: EUN,JAMISON MURO MD, MD, CHLOE K PA-C ~ Electronically Signed By: CONCEPCION HAQ MD 10/24/19 0647 Electronically Signed By: CONCEPCION HAQ MD 10/27/19 0624 PATIENT NAME: SANTA PACHECO AMBIKA OPERATIVE REPORT DATE OF : 47 REPORT #: [id number] PHYSICIAN: CONCEPCION HAQ MD PCP: RENEE KAMARA MD REPORT IS CONFIDENTIAL AND NOT TO BE RELEASED WITHOUT AUTHORIZATION
--- NOTE | 2019-10-29 11:20 | PATH ---
[facility] [address] [place], [place] [address] Signed SPECIMEN(S): A RIGHT GROIN SPECIMEN(S): B B T CELL FLOW ONLY SPECIMEN SOURCE: A. RIGHT GROIN B. B T CELL FLOW ONLY CLINICAL HISTORY: Probable Hodgkin's lymphoma. FINAL PATHOLOGIC DIAGNOSIS: Right groin lymph nodes, excision: - High-grade mature B-cell lymphoma, favor EBV-positive diffuse large B-cell lymphoma. - See Comment. COMMENT: The patient presented in mid-September 2019 with new onset symptomatic pancytopenia with moderate thrombocytopenia. The patient was also found to have diffuse lymphadenopathy, but no mediastinal mass, per Dr. Santillan. Excision of the right groin lymph nodes show effacement of the lymph node architecture with numerous large atypical cells with morphologic and immunophenotypic findings consistent with a diffuse large B-cell lymphoma. The large neoplastic cells are strongly positive for CD20 and also express Debbie-Blackmon virus RNA. While the differential diagnosis of B-cell lymphoma, unclassifiable with features intermediate between diffuse large B-cell lymphoma and classic Hodgkin lymphoma (barakat zone lymphoma) was initially considered due to the dim expression of CD79a and presence of fascin, the overall immunophenotypic pattern favors a B-cell repertoire and the diagnosis of EBV-positive diffuse large B-cell lymphoma is favored. This is usually an aggressive lymphoma with poor prognosis. Please correlation with clinical findings for full assessment. It has been reported that this lymphoma often expresses PD-L1. If such information is useful to guide therapy, please inform the laboratory and immunohistochemistry for PD-L1 can be performed. Concurrent flow cytometry analysis did not detect an abnormal B-cell clone but this is not unusual in the setting large cell lymphoma due to limitations in tissue processing. The small population of PATIENT NAME: DANIELLE PACHECO PATHOLOGY DATE OF : 47 REPORT #: [id number] PHYSICIAN: [facility] PCP: RENEE KAMARA MD REPORT IS CONFIDENTIAL AND NOT TO BE RELEASED WITHOUT AUTHORIZATION [facility] [address] [place], [place] [address] Signed atypical T/NK cells is likely reactive in nature given the above finding of B-cell lymphoma. The result is discussed with Dr. Santillan on 10/29/2019. As part of [email or web address]' Quality Improvement Program, this case was reviewed by another member of our pathology staff. TTP:AIC:smn:C1NR About 14% of lymphocytes show atypical features, lacking surface CD3 but positive for cytoplasmic CD3. These cells are also positive for CD2 and CD5, the latter being more specific of T cells rather than NK cells. They lack CD4 and CD8 and other kim T-cell and NK cells markers. They express CD45 bright and lack immature markers. The nature of these cells is uncertain. Histologic correlation is needed for further assessment and to evaluate for tumors not fully characterized by flow cytometry analysis, including Hodgkin lymphoma and certain non-Hodgkin lymphoma, especially large cell lymphoma, and non-hematopoietic tumors. FLOW CYTOMETRY ANALYSIS: FLOW DIFFERENTIAL (% Total CD45 vs. SSC gating): Lymphoid 94%; Debris 0.2%. Cell Count: 4.8 x 10*3/uL. Total Viability: 98% POPULATION ANALYSIS: LYMPHOID CELLS: The lymphocyte gate comprises 94% of total events and includes 73% T-cells with a CD4:CD8 ratio of 0.8:1. A subset NK/T-cell population is detected (14% of lymphocytes, 11% of total events) expressing CD45 bright, CD2 MOD (slightly dimmer than normal), CD5 MOD and cCD3 (dim, variable) while negative for sCD3, CD4, CD7, CD8, CD10, CD1a, CD34, nTDT, CD16 and CD56. 13% of lymphocytes are polyclonal B-cells with a kappa:lambda ratio of 1.4:1. The remainders are NK-cells. PLASMA CELLS: A significant plasma cell population is not detected in the neg-dimCD45/CD38 screening gate. ANTIBODIES USED: KAPPA, LAMBDA, CD20, CD10, CD19, CD23, CD38, FMC7, CD16, CD56, CD8, CD5, CD2, CD4, CD7, CD3, CD45, nTDT, CD34, CD1a, cCD3, 7AAD: TOTAL ANTIBODIES USED: 22. TCS FLOW CYTOMETRY: Flow cytometry analysis, right groin lymph node: - No atypical B-cell population is detected. - Atypical NK/T-cell population detected. - See Comment. PATIENT NAME: DANIELLE PACHECO PATHOLOGY DATE OF : 47 REPORT #: [id number] PHYSICIAN: [facility] PATHOLOG[facility] PCP: RENEE KAMARA MD REPORT IS CONFIDENTIAL AND NOT TO BE RELEASED WITHOUT AUTHORIZATION [facility] [address] [place] [id number] Signed MICROSCOPIC EXAMINATION: The lymph nodes are enlarged and normal lymph node architecture is effaced by diffuse sheets of mixed cellular infiltrate, consisting of small mature lymphocytes, increased number of histiocytes, and many large atypical cells with irregular nuclear contour, vesicular chromatin, and prominent nucleoli. Mitotic figures are present. Eosinophils are not seen. The following study is performed for further assessment: IMMUNOHISTOCHEMISTRY, BLOCK A3: - CD3: Atypical large cells are negative; small lymphocytes are positive (T-cells). - PAX5: Atypical large cells are positive with variable intensity, predominantly moderate to strong. - CD45: Atypical large cells are positive. - CD20: Atypical large cells are strongly positive. - CD30: Subset of large cells are positive with variable intensity. - CD43: Atypical large cells are negative. - CD79a: Atypical large cells show weak cytoplasmic staining. - MUM1: Atypical large cells are positive with weak to strong staining. - Oct-2: Atypical large cells are strongly positive. - S-100: Negative. - ALK: Negative. - Keratin AE1/AE3: Negative. - CD5: Atypical large cells are negative; T-cells are positive. - p63: Atypical large cells are negative; rare scattered small cells are positive. - CD138: Atypical large cells are negative. - CD10: Atypical large cells are negative. - BCL-6: Atypical large cells are predominantly negative. - BCL-2: Atypical large cells are weakly positive. - Cyclin D1: Atypical large cells are predominantly negative; subset of cells shows weak nuclear staining. - Ki-67: Positive in atypical large cells, approximately 50% of total cells. - c-MYC: Positive in atypical large cells. - RENEA-1: Atypical large cells are positive. - CD15: Atypical large cells are negative. - Fascin: Atypical large cells are positive. IN SITU HYBRIDIZATION, BLOCK A3: - EBV-MATHEW: Atypical large cells are positive. PATIENT NAME: DANIELLE PACHECO AMBIKA PATHOLOGY DATE OF : 47 REPORT #: [id number] PHYSICIAN: ELENA PATHOLOGY PCP: RENEE KAMARA MD REPORT IS CONFIDENTIAL AND NOT TO BE RELEASED WITHOUT AUTHORIZATION [facility] [address] [place], [place] [address] Signed - [place]: Atypical large cells are negative. - Lambda: Atypical large cells are negative. TTP:smn GROSS DESCRIPTION: The specimen, labeled "SH, right groin," is received fresh and consists of three pink-silva, possible lymph nodes that range in size from 1.3 cm up to 2.0 cm in greatest dimension. The lymph nodes have attached yellow-silva, multilobulated adipose tissue. A portion of the specimen is sent to run for flow cytometry. Only adipose tissue remains within the container. Clearing Distribution Clerk sections are submitted in three cassettes. Cassette summary: (A1) smallest lymph node, trisected (A2) midsize lymph node, bisected (A3) largest lymph node, trisected FB (under the direct supervision of a pathologist) The Gross Description was prepared using a voice recognition system. The report was reviewed for accuracy; however, sound-alike word errors, addition and/or deletions may occur. If there is any question about this report, please contact Client Services. ADDITIONAL NOTES: This test was developed and its performance characteristics determined by [facility]. It has not been cleared or approved by the US Food and Drug Administration. The FDA does not require this test to go through premarket FDA review. This test is used for clinical purposes. It should not be regarded as investigational or for research. This laboratory is certified under the Clinical Laboratory Improvement Amendments (CLIA) as qualified to perform high complexity clinical laboratory testing. Immunohistochemical and/or in situ hybridization studies were performed on this case with the appropriate positive controls that react as expected. This test was developed and its performance characteristics determined by [facility]. It has not been cleared or approved by the U.S. Food and Drug Administration. The FDA has determined that such clearance or approval is not necessary. This test is used for clinical purposes. It should not be regarded as investigational or for research. [facility] is certified under the Clinical Laboratory Improvement Amendments of 1988 (CLIA) as qualified to perform high complexity clinical PATIENT NAME: DANIELLE PACHECO PATHOLOGY DATE OF : 47 REPORT #: [id number] PHYSICIAN: ELENA PATHOLOGY PCP: RENEE KAMARA MD REPORT IS CONFIDENTIAL AND NOT TO BE RELEASED WITHOUT AUTHORIZATION [facility] [address] [place] [address] Signed laboratory testing. In this case, certain antibodies were performed by both immunohistochemistry and flow cytometry analysis because flow cytometry analysis did not fully explain all the light microscopic findings. Immunohistochemistry aided in the analysis. Both methods are deemed medically necessary in this case. PERFORMING LABORATORY: The technical component was performed by [facility], [address] [place] [id number] (Painter Interior Finish: Ludivina Mcmahan MD; CLIA# [id number]). The immunohistochemical stains were performed by [facility], [address] [facility] [place] [address] (Painter Interior Finish: Scott Khalil D.O.; CLIA#: [id number]). Professional interpretation was performed by [facility], [address] [place] [address] (Painter Interior Finish: Scott Khalil D.O.; CLIA#: [id number]). The technical and professional components were performed by [facility], [address] [place] [address] (Painter Interior Finish: Scott Khalil D.O.; CLIA#: [id number]). IMAGES: A: [id number] A: [id number] FINAL DIAGNOSIS PERFORMED BY: Qi King MD, Pathologist Oct 26 2019 4:00PM Diagnostician: Qi King MD Pathologist Electronically Signed 10/29/2019 Copies: ~ PATIENT NAME: DANIELLE PACHECO PATHOLOGY DATE OF : 47 REPORT #: [id number] PHYSICIAN: ELENA MAYORGA PCP: RENEE KAMARA MD REPORT IS CONFIDENTIAL AND NOT TO BE RELEASED WITHOUT AUTHORIZATION
== END 2019-10-23 12:45 | disposition home or self-care (01) ==
LOC: DS 06:40
PROVIDERS: Colon & Rectal Surgery
PROC: 05HM33Z Insertion of Infusion Device into Right Internal Jugular Vein, Percutaneous Approach (ICD-10-PCS; 2019-10-23)
PROC: B513YZA Fluoroscopy of Right Jugular Veins using Other Contrast, Guidance (ICD-10-PCS; 2019-10-23)
PROC: 07BH0ZX Excision of Right Inguinal Lymphatic, Open Approach, Diagnostic (ICD-10-PCS; principal; 2019-10-23 08:45)
PROC: 0JH60WZ Insertion of Totally Implantable Vascular Access Device into Chest Subcutaneous Tissue and Fascia, Open Approach (ICD-10-PCS; 2019-10-23 08:45)
DX: C85.15 Unspecified B-cell lymphoma, lymph nodes of inguinal region and lower limb (principal); I10 Essential (primary) hypertension; E78.5 Hyperlipidemia, unspecified; Z98.890 Other specified postprocedural states; Z79.899 Other long term (current) drug therapy; Z88.2 Allergy status to sulfonamides; Z88.1 Allergy status to other antibiotic agents
CPT/HCPCS: 71045; 77001; 80053; 82232; 83615; 84550; 85025; 85651; 88184; 88185; 88305; 88341; 88342; 88365; C1788; J0690; J1644; J2704; J7121

== ENCOUNTER 2019-10-25 14:13 | Emergency (ER) | payer MEDICARE, OTHER ==
[~2019-10-25] VITALS: Ht 160 cm; Wt 54.7 kg
[~2019-10-25 14:13] MED LIST changes: +NORCO 5-325 TA1 EACH PO
--- OUTSIDE RECORDS SUMMARY | 2019-10-25 14:16 | XMS ---
PreManage Notification: DANIELLE PACHECO Security Load Dispatcher Local Events No recent Security Events currently on file CRITERIA MET - [facility] - Has Care Guidelines - PDMP - [facility] - 2 Visits in 30 Days CARE PROVIDERS Toi Medina PA-C Physician Barrel Lathe Operator Current PHONE: Unknown Senthil Vega Internal Medicine: Pulmonary Disease 10/20/2019-Current PHONE: Unknown Nikki Souza PA-C Treatment Current PHONE: Unknown Ambrocio Breen MD Current PHONE: Unknown Krys has no Care Guidelines for this patient. Care History Medical/Surgical 10/20/2019 [facility] - Patient is currently established with [facility]. If patient is seen in the ED during business hours. Please contact CHWs at [facility]. Care Recommendation: If this patient has had 5 or more Emergency Department visits in the last 12 months.\T\nbsp; Patient will require education on the scope and purpose of the ED as an acute care provider not a Primary Care Provider and should not be utilized for chronic conditions.\T\nbsp; These are guidelines and the provider should exercise clinical judgment when providing care. E.D. VISIT COUNT (12 MO.) 4 [facility]. TOTAL 4 NOTE: Visits indicate total known visits. ED/UCC VISIT TRACKING (12 MO.) 10/25/2019 14:14 [facility] [place] TYPE: Emergency COMPLAINT: - SOB 10/19/2019 14:[address] [facility] [place] TYPE: Emergency COMPLAINT: - WEAKNESS 09/23/2019 06:[address] [facility] [place] TYPE: Emergency COMPLAINT: - SYNCOPE DIAGNOSES: - Other terminal manager (current) drug therapy - Essential (primary) hypertension - Syncope and collapse - Allergy status to sulfonamides status - Other pancytopenia 04/30/2019 13:[address] [facility] [place] TYPE: Emergency COMPLAINT: - RIGHT WRIST LEFT ANKLE INJURY DIAGNOSES: - Other assisted (current) drug therapy - Pain in right ankle and joints of right foot - Personal history of malignant neoplasm of oth prt uterus - Overexertion from prolonged static or awkward postures, init - Unsp fracture of the lower end of right radius, init - Allergy status to sulfonamides status - Contusion of left knee, initial encounter INPATIENT VISIT TRACKING (12 MO.) 10/20/2019 11:08 [facility] [place] TYPE: Medical Surgical COMPLAINT: - FEVER DIAGNOSES: - Personal history of malignant neoplasm of oth prt uterus - Other assisted (current) drug therapy - Allergy status to sulfonamides status - Hypo-osmolality and hyponatremia - Fever, unspecified - Zoster without complications - Other pancytopenia - Essential (primary) hypertension - Hypercalcemia - Personal history of malignant neoplasm of oth prt uterus - Zoster without complications - Other pancytopenia - Hypercalcemia - Hodgkin lymphoma, unspecified, lymph nodes of multiple sites - Essential (primary) hypertension - Fever presenting with conditions classified elsewhere - Fever presenting with conditions classified elsewhere - Allergy status to sulfonamides status - Other assisted (current) drug therapy - Dehydration - Hodgkin lymphoma, unspecified, lymph nodes of multiple sites - Dehydration - Hypo-osmolality and hyponatremia [email or web address]
--- NOTE | 2019-10-25 18:16 | EKG ---
[facility] [address] [facility] [facility] [place], [place] [address] Signed Normal sinus rhythm Left axis deviation Left bundle branch block Abnormal ECG When compared with ECG of 19-OCT-2019 15:29, No significant change was found Confirmed by PATRICK GROSSMAN DO ([id number]) on 10/25/2019 6:16:06 PM Electronically Signed By: PATRICK GROSSMAN DO 10/25/19 1816 PATIENT NAME: TARADANIELLE Electrocardiogram DATE OF : 47 PHYSICIAN: PATRICK GROSSMAN DO REPORT #: [id number] REPORT IS CONFIDENTIAL AND NOT TO BE RELEASED WITHOUT AUTHORIZATION
== END 2019-10-25 19:52 | disposition home or self-care (01) ==
LOC: ED 14:13
DX: C81.90 Hodgkin lymphoma, unspecified, unspecified site (principal); E86.0 Dehydration; E83.52 Hypercalcemia; I10 Essential (primary) hypertension; Z88.2 Allergy status to sulfonamides; Z79.899 Other long term (current) drug therapy
CPT/HCPCS: 51701; 71045; 80053; 81001; 83605; 85025; 93005; 93010; 99284-25; J2405; J7030

== ENCOUNTER 2019-10-26 10:46 | Emergency (ER) | payer MEDICARE, OTHER ==
[~2019-10-26] VITALS: Ht 160 cm; Wt 54.7 kg
--- NOTE | 2019-10-26 19:39 | EKG ---
[facility] [address] [facility] [place], [place] [address] Signed Normal sinus rhythm Left bundle branch block Abnormal ECG When compared with ECG of 25-OCT-2019 16:51, T wave inversion now evident in Anterior leads Confirmed by PATRICK GROSSMAN DO ([id number]) on 10/26/2019 7:39:22 PM Electronically Signed By: PATRICK GROSSMAN DO 10/26/19 1939 PATIENT NAME: TARADANIELLE Electrocardiogram DATE OF : 47 PHYSICIAN: PATRICK GROSSMAN DO REPORT #: [id number] REPORT IS CONFIDENTIAL AND NOT TO BE RELEASED WITHOUT AUTHORIZATION
== END 2019-10-26 17:19 | disposition short-term general hospital (02) ==
LOC: ED 10:46
DX: C81.90 Hodgkin lymphoma, unspecified, unspecified site (principal); R74.0 Nonspecific elevation of levels of transaminase and lactic acid dehydrogenase [LDH]; I10 Essential (primary) hypertension; Z88.2 Allergy status to sulfonamides; Z79.899 Other long term (current) drug therapy
CPT/HCPCS: 51702; 71045; 80053; 81001; 82330; 83605; 83735; 84484; 85025; 93005; 93010; 99285-25; J2405; J3475; J7030

== ENCOUNTER 2020-05-05 10:49 | Day surgery (SDC) | payer MEDICARE, OTHER ==
[~2020-05-05] VITALS: Ht 160 cm; Wt 54.7 kg
[~2020-05-05 10:49] MED LIST changes: +BENZONATATE100 MG PO; +K-TAB ER20 MEQ PO; +LOSARTAN POTASS25 MG PO; +MAG-OXIDE400 MG PO; +METOPROLOL SUCC25 MG PO; +PROCHLORPERAZIN10 MG PO; +ROSUVASTATIN CA20 MG PO; +SENNA-S 8.6-501 EACH PO; +TORSEMIDE20 MG PO; +VITAMIN D3125 MC2 PO; +ZOFRAN8 MG PO
--- NOTE | 2020-05-05 12:26 | NUR ---
05/05/20 1226 Graciela Nelson 1223- PT ARRIVES TO PACU EASILY AROUSABLE TO VOICE. PT REPORTS NO PAIN OR NAUSEA. RESP EVEN AND UNLABORED. OXYGEN SAT HIGH 90'S TO 100% ON 2L VIA NC. 1226- OXYGEN TITRATED OFF.
--- NOTE | 2020-05-10 09:57 | PATH ---
[facility] [address] 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 C83.39 (diffuse large B-cell lymphoma, extranodal and solid organ sites). DIAGNOSIS SUMMARY: A. Peripheral blood - Lymphocytopenia. - Mild thrombocytopenia. B. Bone marrow, aspirate smears, clot section cell block and core biopsy: - Normocellular bone marrow (30-40%) with progressive trilineage hematopoiesis. - Lymphoid nodules identified, favor benign. - No morphologic or immunophenotypic evidence of involvement by high-grade mature B-cell lymphoma. - Please see Diagnostic Comment. DIAGNOSTIC COMMENT: The prior diagnosis of high-grade mature B-cell lymphoma, favoring EBV-positive diffuse large B-cell lymphoma is noted. The bone marrow examination demonstrates no morphologic or immunophenotypic evidence of involvement by B-cell neoplasm. Atypical NK/T-cell population that was detected by flow cytometry study in previous lymph node biopsy ([id number]) is present in the bone marrow specimen and accounts for 1% of analyzed events. This population most likely represents a reactive phenomenon. Clinical correlation is recommended. GP:nelly:C2NR PERIPHERAL BLOOD: HEMOGRAM ([facility], 05/05/2020): WBC 2.8 K/uL, RBC 4.22 M/uL, HGB 13.7 g/dL, HCT 40.3%, MCV 95.4 fL, MCH 32 pg, MCHC 34 g/dL, RDW 15.0%, PLT 127 K/uL. DIFFERENTIAL: Neutrophils 68%, bands 5%, lymphocytes 22%, monocytes 2%, eosinophils 2%, basophils 1%. The blood smear is consistent with the CBC. WBC count is moderately decreased with predominance of mature neutrophils and bands demonstrating normal cytoplasmic granularity and nuclear features. No PATIENT NAME: DANIELLE PACHECO PATHOLOGY DATE OF : 47 REPORT #: [id number] PHYSICIAN: ELENA MAYORGA PCP: RENEE KAMARA MD REPORT IS CONFIDENTIAL AND NOT TO BE RELEASED WITHOUT AUTHORIZATION [facility] [address] [place], [place] [address] Signed blasts or otherwise immature cells are detected. Lymphocytes are predominantly small with condensed chromatin pattern and scant amount of cytoplasm. Some large granular lymphocytes are noted. Vacuolated monocytes are seen. Platelets are decreased in number. No platelet clumping or satellitosis. Hemoglobin is normal with normal MCV; red blood cells are predominantly round, normocytic and normochromic. BONE MARROW: BONE MARROW ASPIRATE SMEARS: The aspirate smear slides are hemodilute and aparticulate. No diagnostic bone marrow elements are detected. BONE MARROW BIOPSY AND CLOT SECTION: The biopsy is adequate for evaluation. Histologic sections demonstrate normocellular bone marrow for the patient's age (overall estimated cellularity is approximately 30-40%) with trilineage hematopoietic elements at different stages of maturation. Maturing granulocytes, erythroid precursors and morphologically unremarkable megakaryocytes are seen. Several small lymphoid collections composed of mature appearing lymphocytes admixed with epithelioid histiocytes and plasma cells are noted. No large cell infiltrate is detected. No definitive fibrosis, granulomas or non-hematopoietic neoplasms are seen. The clot section contains predominantly clotted blood with no diagnostic bone marrow particles. SPECIAL STAINS: - Iron stain (performed on aspirate smear and clot section): Mildly increased stainable iron on aspirate smear; no ring sideroblasts detected. Clot section slide is noncontributory due to lack of diagnostic bone marrow elements. IMMUNOHISTOCHEMICAL STAINS (performed on bone marrow core biopsy): - CD3: Positive in T-cells; highlights majority of cells in lymphoid nodules. - CD20: Negative. - PAX5: Positive in interstitial cells. - CD79a: Positive in interstitial cells. - CD30: Negative. - MUM1: Positive in rare cells. - CD163: Positive in histiocytes and monocytes. - CD71: Positive in erythroid precursors. GP:[facility] FLOW CYTOMETRY: Bone marrow, flow cytometry: - No monoclonal B-cells detected. PATIENT NAME: DANIELLE PACHECO PATHOLOGY DATE OF : 47 REPORT #: [id number] PHYSICIAN: ELENA PATHOLOGY PCP: RENEE KAMARA MD REPORT IS CONFIDENTIAL AND NOT TO BE RELEASED WITHOUT AUTHORIZATION [facility] [address] [place], [place] [address] Signed - No increase in blasts. - Small population of atypical NK/T-cell population identified. - Please see Comment. COMMENT: The prior diagnosis of high-grade mature B-cell lymphoma is noted ([id number]). An atypical NK/T cells were detected with immunophenotype somewhat similar to current flow cytometry study. Correlation with clinical and morphologic findings is required for complete interpretation of the flow cytometry results as paratrabecular, fibrotic or large cell infiltrates in the marrow may not be well represented in aspirate specimens. GP:[facility] FLOW CYTOMETRY ANALYSIS: FLOW DIFFERENTIAL (% Total CD45 vs. SSC gating): Myeloid 64%; Lymphoid 14%; Monocyte 11%; Dim CD45/Blast: 0.3%. Cell Count: 1.1 x 10*3/uL. POPULATION ANALYSIS: BLASTS: Analysis of the dim CD45 gate demonstrates 0.3% myeloblasts by CD34/CD117. 1.1% of total events are hematogones. LYMPHOID CELLS: The lymphocyte gate comprises 14% of total events and includes 78% T-cells. An atypical T-cell subset is detected (9% of lymphocytes, 1% of total events) expressing CD45 MOD, CD2 MOD, CD5 BR, CD7 MOD and cCD3 MOD while negative for surface CD3, CD4, CD8, CD16, CD56, CD1a, CD10, CD34, nTDT. 17% of lymphocytes are NK-cells. B-cells are essentially absent. MYELOID CELLS: The myeloid population comprises 64% of the total events. Changes suggestive of hemodilution are observed. MONOCYTES: The monocyte population comprises 11% of the total events. Monocytes are not increased. No aberrant immunophenotypic expression is detected. PLASMA CELLS: A significant plasma cell population is not detected in the neg-dimCD45/CD38 screening gate. ANTIBODIES USED: KAPPA, LAMBDA, CD20, CD10, CD19, CD23, CD38, FMC7, CD16, CD56, CD8, CD5, CD2, CD4, CD7, CD3, CD14, CD33, CD13, HLADR, CD34, CD117, CD15, CD45, CD1a, cCD3, nTDT: TOTAL ANTIBODIES USED: 27. DKW FINAL DIAGNOSIS PERFORMED BY: Candelario Bell MD. MPH, Pathologist May 06 2020 12:42PM PATIENT NAME: DANIELLE PACHECO PATHOLOGY DATE OF : 47 REPORT #: [id number] PHYSICIAN: ELENA MAYORGA PCP: RENEE KAMARA MD REPORT IS CONFIDENTIAL AND NOT TO BE RELEASED WITHOUT AUTHORIZATION [facility] [address] [place], [place] [address] Signed GROSS DESCRIPTION: A. The specimen, labeled "Alberto, bone core," is received in formalin and consists of a 1.6 cm silva bone core. It is submitted in cassette (A1), following decalcification in Immunocal for 1.5 hours. B. The specimen, labeled "Alberto, clot," is received in formalin and consists of a 1.6 x 0.5 x 0.2 cm aggregate of blood clot. It is submitted entirely in (B1). TN (under the direct supervision of a pathologist) The Gross Description was prepared using a voice recognition system. The report was reviewed for accuracy; however, sound-alike word errors, addition and/or deletions may occur. If there is any question about this report, please contact Client Services. ADDITIONAL NOTES: This test was developed and its performance characteristics determined by [facility]. It has not been cleared or approved by the US Food and Drug Administration. The FDA does not require this test to go through premarket FDA review. This test is used for clinical purposes. It should not be regarded as investigational or for research. This laboratory is certified under the Clinical Laboratory Improvement Amendments (CLIA) as qualified to perform high complexity clinical laboratory testing. Immunohistochemical and/or in situ hybridization studies were performed on this case with the appropriate positive controls that react as expected. This test was developed and its performance characteristics determined by [facility]. It has not been cleared or approved by the U.S. Food and Drug Administration. The FDA has determined that such clearance or approval is not necessary. This test is used for clinical purposes. It should not be regarded as investigational or for research. [facility] is certified under the Clinical Laboratory Improvement Amendments of 1988 (CLIA) as qualified to perform high complexity clinical laboratory testing. In this case, certain antibodies were performed by both immunohistochemistry and flow cytometry analysis because flow cytometry analysis did not fully explain all the light microscopic findings. Immunohistochemistry aided in the analysis. Both methods are deemed medically necessary in this case. PERFORMING LABORATORY: The technical component of flow cytometry was performed by [facility], PATIENT NAME: DANIELLE PACHECO PATHOLOGY DATE OF : 47 REPORT #: [id number] PHYSICIAN: ELENA MAYORGA PCP: RENEE KAMARA MD REPORT IS CONFIDENTIAL AND NOT TO BE RELEASED WITHOUT AUTHORIZATION [address] [address] Signed [address] [place] [address] (Thread Cutter Tender: Scott Khalil D.O.; CLIA#: [id number]). Professional interpretation of flow cytometry was performed by [facility], [facility], [facility] [place] [address] (Thread Cutter Tender: Lelnad Liu M.D.; CLIA#: [id number]). The technical component was performed by [facility], [address] [place] [address] (Thread Cutter Tender: Scott Khalil D.O.; CLIA#: [id number]). Professional interpretation was performed by [facility], [facility], [address] [place] [id number] (Thread Cutter Tender: Leland Liu M.D.; CLIA#: [id number]). IMAGES: [id number]: [id number] A: [id number] Diagnostician: Candelario Bell MD. MPH Pathologist Electronically Signed 05/10/2020 Copies: ~ PATIENT NAME: DANIELLE PACHECO PATHOLOGY DATE OF : 47 REPORT #: [id number] PHYSICIAN: ELENA PATHOLOGY PCP: RENEE KAMARA MD REPORT IS CONFIDENTIAL AND NOT TO BE RELEASED WITHOUT AUTHORIZATION
== END 2020-05-05 13:05 | disposition home or self-care (01) ==
LOC: OPS 10:49 → DS 10:49 → OPS 12:00 → DS 12:00 → OPS 13:05
PROVIDERS: Specialist
PROC: 079T3ZX Drainage of Bone Marrow, Percutaneous Approach, Diagnostic (ICD-10-PCS; 2020-05-05)
PROC: 07DR3ZX Extraction of Iliac Bone Marrow, Percutaneous Approach, Diagnostic (ICD-10-PCS; principal; 2020-05-05 12:00)
DX: C83.39 Diffuse large B-cell lymphoma, extranodal and solid organ sites (principal); D69.6 Thrombocytopenia, unspecified; I10 Essential (primary) hypertension; E78.5 Hyperlipidemia, unspecified; I48.91 Unspecified atrial fibrillation; Z79.899 Other long term (current) drug therapy; Z88.8 Allergy status to other drugs, medicaments and biological substances; Z88.2 Allergy status to sulfonamides
CPT/HCPCS: 80053; 82784; 83615; 85025; 85651; 99152; J2250; J3010; J7121

== ENCOUNTER 2024-06-09 08:31 | Day surgery (SDC) | payer MEDICARE, OTHER ==
[~2024-06-09] VITALS: Ht 157.5 cm; Wt 60.5 kg
[~2024-06-09 08:31] MED LIST changes: +ACYCLOVIR400 MG PO; +COZAAR50 MG PO; +DOXYCYCLINE HY100 MG PO; +IBLOOD GLUCOSE TEST STRIP 1 EA TEST VI PRN; +LACTATED RINGER'S 1,000 ML IV SCH; +LASIX20 MG PO; +LIDOCAINE 1% W/ EPI 1:100,000 20 ML MDV ONE; +LIDOCAINE HCL 1% 5 ML SDV INJ ONE; -LOSARTAN POTASS25 MG PO; +NITROFURANTOIN100 M1 PO; +PROLIA60 MG/1 ML SUB-Q; +TUMS200 MG PO; +WARFARIN SODIU7.5 MG PO; +WARFARIN SODIUM5 MG PO
[2024-06-09 08:52] VITALS: BP 139/67
[2024-06-09] MEDS ORDERED: CEFAZOLIN SODIUM 1 GM/10 ML SYR IV SCH (09:15)
[2024-06-09] MEDS ORDERED: LIDOCAINE HCL 2% 5 ML SDV ONE (10:37)
[2024-06-09] MEDS ORDERED: fentaNYL citrate 100 MCG/2 ML VIAL ONE (10:37)
[2024-06-09] MEDS ORDERED: propofoL 200 MG/20 ML VIAL ONE (10:37)
[2024-06-09] MEDS ORDERED: ROCURONIUM BROMIDE 50 MG/5 ML SYR ONE (10:37)
[2024-06-09] MEDS ORDERED: LIDOCAINE HCL 1% 30 ML SDV ONE (10:38)
[2024-06-09] MEDS ORDERED: KETAMINE in NS 50 MG/5 ML SYR ONE (10:39)
[2024-06-09] MEDS ORDERED: MIDAZOLAM HCL 2 MG/2 ML VIAL ONE (11:05)
[2024-06-09] MEDS ORDERED: ePHEDrine sulfate 50 MG/ML AMP ONE (11:42)
[2024-06-09] MEDS ORDERED: DEXAMETHASONE SOD PHOS 4 MG/ML VIAL ONE (11:51)
[2024-06-09] MEDS ORDERED: ondansetron HCL 4 MG/2 ML VIAL ONE (11:51)
[2024-06-09] MEDS ORDERED: SUGAMMADEX SODIUM 200 MG/2 ML ML ONE (11:56)
[2024-06-09 12:25] LABS: INR 1.18 (0.80-1.30); PROTIME 14.3 Sec (11.2-14.2)
[2024-06-09] MEDS ORDERED: NALOXONE HCL 0.4 MG SYR IV PRN (12:45)
[2024-06-09] MEDS ORDERED: ondansetron HCL 4 MG/2 ML VIAL IV PRN (12:45)
[2024-06-09] MEDS ORDERED: IBLOOD GLUCOSE TEST STRIP 1 EA TEST VI PRN (12:45)
[2024-06-09] MEDS ORDERED: fentaNYL citrate 50 MCG/ML SDV IV PRN (12:45)
[2024-06-09] MEDS ORDERED: fentaNYL citrate 50 MCG/ML SDV ONE (12:46)
--- NOTE | 2024-06-09 13:26 | NUR ---
06/09/24 1326 Rafi,Ileana 1229 PT ARRIVED TO PACU ON 6L VIA MASK, PT ASLEEP AND CHIN LIFT USED OFF AND ON TO MAINTAIN AIRWAY. RESP EVEN AND UNLABORED. 1236 PT WOKE AND O2 REMOVED, PT REORIENTED TO PACU AND MD AT BEDSIDE. PT DENIES PAIN AND NAUSEA. 1240 SMALL AMOUNT OF DRAINAGE NOTED AND DRIP PAD REINFORCED. PT REPORTS "ITS STARTING TO HURT IN MY NOSE." 1251 PT REPORTS PAIN IN HER MOUTH NOW, "GETTING INTOLERABLE." PAIN MEDICATION GIVEN. PT MORE AWAKE AND TALKING TO RN, GRIMACING NOTED. 1257 PT REPORTS LITTLE CHANGE IN PAIN 4/10 AND GOAL OF 3/10. PT WAKES EASILY AND DENIES NAUSEA. 1302 PT REQUESTING WATER, RN HELPS PT SWISH MOUTH AND SPIT, SMALL AMOUNT OF DRAINAGE NOTED. PT SIPPING WATER WITH NO CONCERNS, PT COUGHING OFF AND ON. HOB INCREASED. 1307 PAIN MEDICATION GIVEN, PT REPORTS PAIN 5/10. 1310 O2 DECREASED TO UPPER 80S WHEN ASLEEP AND DEEP BREATHING ENCOURAGED, EDUCATION GIVEN ON DEEP BREATHING AND PAIN MEDICATION. O2 INCREASED TO MID 90S. 1317 O2 DECREASED TO HIGH 80S. 2L OXYMASK PLACED DUE TO DRESSING AND O2 SAT. O2 INCREASED TO MID 90S. PT EASILY FALLS ASLEEP AND 8-10 RESP RATE NOTED. 1325
[2024-06-09 13:50] VITALS: BP 143/68
--- NOTE | 2024-06-09 13:50 | NUR ---
PT ARRIVED BACK TO DAY SURGERY VIA STRETCHER. ORIENTED TO ROOM AND CALL LIGHT. REPORT RECIEVED FROM MALLORIE PRADO. PTS DRIP PAD SATURATED WITH SANG. FLUID. PAD REPLACED IN PACU. AT BEDSIDE.
[2024-06-09] MEDS ORDERED: HYDROCODONE/ACETA 5/325 TAB PO PRN (14:00)
[2024-06-09 14:49] VITALS: BP 119/63
--- NOTE | 2024-06-09 14:50 | NUR ---
SPOKE WITH PATIENT REGARDING HER COUMADIN DOSING. PT REPORTS MD SPOKE WITH HER AT TOLD HER TO RESUME HER COUMADIN ON THIS SATURDAY.
--- NOTE | 2024-06-09 15:13 | NUR ---
PT UP TO BATHROOM WITH STANDBY ASSIST. PT VOIDED 125ML. PT BACK TO ROOM. PTS DRIP PAD SATURATED AT THIS TIME. CHANGED PAD AND WILL CONTINUE TO MONITOR.
[2024-06-09] MEDS ORDERED: HEParin SOD (PORCINE) 500 UNIT/5 ML ML IV PRN (15:45)
--- NOTE | 2024-06-09 15:58 | NUR ---
PT DISCHARGED TO HOME WITH INSTRUCTIONS ON MEDICATION, FOLLOW-UP, WHEN TO CONTACT MD, ACTIVITY, AND WHEN TO CONTACT THE PROVIDER. SPECIFIC INSTRUCTIONS GIVEN TO LEAVE PACKING IN PLACE UNTIL FOLLOW-UP. PT AND VERBALIZED UNDERSTADING AND LEFT FOR HOME VIA WHEELCHAIR.
--- NOTE | 2024-06-11 17:15 | PATH ---
[facility] [address] [place], [place] [address] Signed SPECIMEN(S): A RIGHT SINUS CONTENTS SPECIMEN SOURCE: A. RIGHT SINUS CONTENTS CLINICAL HISTORY: Pre-op: Right chronic pansinusitis, oral antral fistula. Post-op: Closure of oral antral fistula. FINAL PATHOLOGIC DIAGNOSIS: Right sinus contents: - Benign respiratory mucosa with acute and chronic stromal inflammation. - Fragments of benign bone. JVR:brock MICROSCOPIC EXAMINATION: Histologic sections of all submitted blocks are examined by light microscopy. These findings, together with the gross examination, support the pathologic diagnosis. GROSS DESCRIPTION: The specimen, labeled and designated "Elio Dominguez, right sinus contents," is received in formalin and consists of four fragments silva-brown soft or collagenous tissue measuring 1.7 x 1.7 x 0.4 cm in aggregate. Specimen entirely submitted in a single cassette. JM (under the direct supervision of a pathologist) The Gross Description was prepared using a voice recognition system. The report was reviewed for accuracy; however, sound-alike word errors, addition and/or deletions may occur. If there is any question about this report, please contact Client Services. PERFORMING LABORATORY: Technical component was performed by [facility], [address] [place] [id number] (CLIA# [id number]). Professional interpretation was performed by [facility], [address] [place] [id number] (CLIA#: [id number]). Diagnostician: Javier Garcia MD Pathologist Electronically Signed 06/11/2024 PATIENT NAME: DANIELLE DOMINGUEZ PATHOLOGY DATE OF : 47 REPORT #: [id number] PHYSICIAN: ELENA PATHOLOGY PCP: RENEE KAMARA MD REPORT IS CONFIDENTIAL AND NOT TO BE RELEASED WITHOUT AUTHORIZATION [address] [place] [address] Signed Copies: ~ PATIENT NAME: DANIELLE DOMINGUEZ PATHOLOGY DATE OF : 47 REPORT #: [id number] PHYSICIAN: ELENA PATHOLOGY PCP: RENEE KAMAAR MD REPORT IS CONFIDENTIAL AND NOT TO BE RELEASED WITHOUT AUTHORIZATION
--- NOTE | 2024-06-16 12:01 | OR ---
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 PROCEDURE: Right pansinusotomies, closure of oral antral fistula. ANESTHESIA: General orotracheal, ACID POLYMERIZATION OPERATOR, Sofya. PREOPERATIVE HISTORY: Santa is a 79-year-old lady with right pansinusitis. This resulted from a right premolar tooth extraction several months ago. She has an oral antral fistula. The right maxillary and ethmoid sinuses are completely opacified and she has had chronic drainage, chronic sinus infections. She is taken to the operating room for the above-mentioned procedures. OPERATIVE PROCEDURE AND FINDINGS: After informed consent, the patient was taken to the operating room, placed in the supine position where general orotracheal anesthesia was induced. The patient and procedure were verified. The patient received preoperative intranasal oxymetazoline and intravenous Ancef. The preop CT was viewed throughout. Headlight speculum exam of the nasal cavity showed the left side clear, the right side purulence in the middle meatus. The middle turbinate was medialized. The middle meatus was entered with a curved ring curette. An antrostomy made, purulence granular tissue removed from the maxillary sinus. The maxillary sinus was curetted out. Specimen sent to pathology where vascular tissue, granular tissue, purulence filling the maxillary sinus. The anterior ethmoid air cells were opened with Chayito. The maxillary antrostomy was widened with the Chayito. Packing was then placed. A Holm pack coated with Neosporin in the middle meatus and trimmed Merocel pack coated with Neosporin in the nasal cavity. Hemostasis was verified. The patient was repositioned. Oral cavity inspected. The opening of the oral antral fistula was identified at the tooth socket appeared to be the 1st or 2nd premolar. She Electronically Signed By: NEAL GAUTHIER MD 06/16/24 1201 PATIENT NAME: SANTA PACHECO OPERATIVE REPORT DATE OF : 47 REPORT #: [id number] PHYSICIAN: NEAL GAUTHIER MD PCP: RENEE KAMARA MD REPORT IS CONFIDENTIAL AND NOT TO BE RELEASED WITHOUT AUTHORIZATION [facility] [address] [place], [place] [address] Signed did have some partially edentulous maxilla. The fistula site of the gingiva was curetted with a Jay elevator. Mucosal edges were elevated. The fistula was closed with a 4-0 Vicryl stitch, appear to be adequate closure. Minimal bleeding. The pharynx was suctioned clear of blood and secretions. The patient was awakened, extubated, transported to recovery room in good condition. No complications. BLOOD LOSS: About 100 mL. PACKING: Two pieces of Merocel, right nostril. SPECIMEN: To pathology. DRAINS: No drains. Neal Gauthier MD GC/MODL /[id number] Copies: ~ Electronically Signed By: NEAL GAUTHIER MD 06/16/24 1201 PATIENT NAME: SANTA PACHECO AMBIKA OPERATIVE REPORT DATE OF : 47 REPORT #: [id number] PHYSICIAN: NEAL GAUTHIER MD PCP: RENEE KAMARA MD REPORT IS CONFIDENTIAL AND NOT TO BE RELEASED WITHOUT AUTHORIZATION
== END 2024-06-09 15:52 | disposition home or self-care (01) ==
LOC: DS 08:31 → OPS 08:31 → DS 09:40 → OPS 09:45 → DS 09:45 → OPS 11:00
PROVIDERS: Nurse Anesthetist, Certified Registered; ATTEND Otolaryngology
PROC: 09QQ8ZZ Repair Right Maxillary Sinus, Via Natural or Artificial Opening Endoscopic (ICD-10-PCS; 2024-06-09)
PROC: 09D Ear, Nose, Sinus, Extraction (ICD-10-PCS; principal; 2024-06-09 11:00)
DX: J32.4 Chronic pansinusitis (principal); J32.0 Chronic maxillary sinusitis; I10 Essential (primary) hypertension; E78.00 Pure hypercholesterolemia, unspecified; I48.91 Unspecified atrial fibrillation; Z79.01 Long term (current) use of anticoagulants; M81.0 Age-related osteoporosis without current pathological fracture; Z79.83 Long term (current) use of bisphosphonates; Z79.899 Other long term (current) drug therapy; Z88.2 Allergy status to sulfonamides; Z88.1 Allergy status to other antibiotic agents; Z88.8 Allergy status to other drugs, medicaments and biological substances
CPT/HCPCS: 00160; 36415; 85610; 88305; J0690; J1100; J2001; J2250; J2405; J2704; J3010; J3490; J7121

== ENCOUNTER 2024-11-10 13:52 | Emergency (ER) | payer OTHER, MEDICARE ==
[~2024-11-10] VITALS: Ht 157.5 cm; Wt 61.7 kg
[~2024-11-10 13:52] MED LIST changes: -IBLOOD GLUCOSE TEST STRIP 1 EA TEST VI PRN; -LACTATED RINGER'S 1,000 ML IV SCH; -LIDOCAINE 1% W/ EPI 1:100,000 20 ML MDV ONE; -LIDOCAINE HCL 1% 5 ML SDV INJ ONE; +PRIVIGEN50 ML IV
[2024-11-10] MEDS ORDERED: HYDROCODONE/APAP 10/325 1 TAB PO ONE (14:45)
[2024-11-10] MEDS ORDERED: HYDROCODON-ACE1 EAC8 PO (16:27)
[2024-11-10] MEDS ORDERED: HYDROCODONE BIT/ACETAMINOPHEN 5/325 MG 1 TAB HOME.PACK PO ONE (17:00)
[2024-11-10 17:01] VITALS: BP 139/89
== END 2024-11-10 17:03 | disposition home or self-care (01) ==
LOC: ED 13:52
DX: S42.212A Unspecified displaced fracture of surgical neck of left humerus, initial encounter for closed fracture (principal); S42.292A Other displaced fracture of upper end of left humerus, initial encounter for closed fracture; I10 Essential (primary) hypertension; Z88.2 Allergy status to sulfonamides; Z88.1 Allergy status to other antibiotic agents; Z79.899 Other long term (current) drug therapy; W01.0XXA Fall on same level from slipping, tripping and stumbling without subsequent striking against object, initial encounter
CPT/HCPCS: 36415; 73030; 99283; A9270; G0480